=== PATIENT | male | born 1965 | race Caucasian/White ===

== ENCOUNTER → 2023-03-08 | Outpatient (CLI) | payer OTHER, SELFPAY ==
[2023-03-08 18:19] LABS: Amphetamine Urine VISTA NEGATIVE (<1000 ng/mL); Barbiturate Urine VISTA NEGATIVE (< 200 ng/mL); Benzodiazepine Urine VISTA NEGATIVE (< 200 ng/mL); Cocaine Urine VISTA NEGATIVE (< 300 ng/mL); Ecstacy Urine VISTA NEGATIVE (< 500 ng/mL); Methadone Urine VISTA NEGATIVE (< 300 ng/mL); PCP Urine VISTA NEGATIVE (< 25 ng/mL); THC Urine VISTA NEGATIVE (< 50 ng/mL); Vista UDS pH Range 6
== END | disposition home or self-care (01) ==
LOC: MTLAB 16:32
PROVIDERS: Referring Provider Internal Medicine Pulmonary Disease; Visit Provider Internal Medicine Pulmonary Disease
DX: G47.10 Hypersomnia, unspecified (principal)
CPT/HCPCS: 80307

== ENCOUNTER → 2024-10-29 | Outpatient (CLI) | payer OTHER, SELFPAY ==
--- NOTE | 2024-10-29 12:31 | MRI_ITS ---
PROCEDURE: LOWER EXT JOINT ONLY (ROUTINE) 10/29/2024 REASON FOR EXAM: QUAD TENDON RUPTURE TECHNIQUE: LOWER EXT JOINT ONLY (ROUTINE) Multiplanar and multisequence images were obtained without IV contrast administration. COMPARISON: COMPARISON : None FINDINGS: Menisci: There is partial subluxation involving the anterior horn of the medial meniscus. No meniscal tears are seen. Bone Marrow: No bone marrow edema is identified. Mild chondromalacia involving the undersurface of the patella. Chondral surfaces overlying the weight-bearing surfaces of the medial and lateral femoral condyles and tibial plateau are within normal limits. Effusion: [id number] size joint effusion Soft Tissues: Ligaments and Tendons: The anterior and posterior cruciate ligaments are intact. Grade 1 sprain involving the lateral collateral ligament complex. The medial collateral ligament complex appears intact. There is complete rupture involving the distal quadriceps tendon, with approximately 2.7 cm retraction and surrounding edematous changes. The patellar tendon is intact. MRI/Lower Ext Joint Only (Routine) IMPRESSION: 1. Complete rupture involving the distal quadriceps tendon, with a proximally 2 .7 cm retraction and surrounding edematous changes. 2. Mild grade 1 sprain involving the lateral collateral ligament complex. 3. Partial subluxation involving the anterior horn of the medial meniscus. No meniscal tears are seen. 4. Grzakagf-wy-yrwlj size joint effusion. 5. Additional findings, as above Reading [facility]
== END | disposition home or self-care (01) ==
PROVIDERS: Referring Provider Nurse Practitioner Family; Visit Provider Nurse Practitioner Family
DX: S76.112A Strain of left quadriceps muscle, fascia and tendon, initial encounter (principal); X58.XXXA Exposure to other specified factors, initial encounter
CPT/HCPCS: 73721

== ENCOUNTER 2024-10-30 07:03 | Day surgery (SDC) | payer OTHER, SELFPAY ==
[2024-10-30] VITALS (10 sets, daily range): BP systolic 116–164; BP diastolic 65–88; PULSE 57–77; RESP 16–18; TEMP 36.5–37; O2SAT 96–98; BMI 27.9
--- OUTSIDE RECORDS SUMMARY | 2024-10-30 07:07 | XMS RPT_ITS | CCD ---
Author Organization [facility] CliniSyme Care Team Providers Care Certified Nutritionist Name Role Phone ALVARO MARTINEZ MD. Unavailable Unavailable Maharaj, Christopher Unavailable Unavailable UNKNOWN, PCP Unavailable Unavailable UNKNOWN, PCP Unavailable Unavailable UNKNOWN, PCP Unavailable Unavailable Maharaj, Christopher Attending Unavailable Maharaj, Christopher Primary Care Unavailable Maharaj, Christopher Admitting Unavailable Maharaj, Christopher Attending Unavailable Maharaj, Christopher Primary Care Unavailable BondArpan plasencia Admitting Unavailable BondArpan Attending Unavailable Maharaj, Christopher Primary Care Unavailable PhiliprierLuh Admitting Unavailable FarrierLuh Attending Unavailable Maharaj, Christopher Primary Care Unavailable BondArpan hendrickson Admitting Unavailable BondArpan Attending Unavailable Maharaj, Christopher Primary Care Unavailable BondArpan hendrickson Admitting Unavailable BondArpan Attending Unavailable Maharaj, Christopher Primary Care Unavailable Whitaker, Kinjal Annia Primary Care Provider WHITAKER, KINJAL E. Primary Care Unavailable Whitaker Kinjal SPENCER Primary Care Provider Unknown, Referring Provider Unavailable Unav ailable Graham Toledo Unavailable Unavailable Maharaj, Christopher D Unavailable Unavailable Whitaker Kinjal SPENCER Primary Care Provider MAGALI MCGILL Attending Unavailable WHITAKER, KINJAL E. Primary Care Unavailable ARTEM, MAGALI SABRY Attending Unavailable WHITAKER, KINJAL E. Primary Care Unavailable ARTEM, MAGALI SABRY Attending Unavailable WHITAKER, KINJAL E. Primary Care Unavailable ARTEM, MAGALI SABRY Attending Unavailable WHITAKER, KINJAL E. Primary Care Unavailable Sibilia, Dimas V Referring Unavailable Sibilia, Dimas V Attending Unavailable Care Physician, No Primary Primary Care Unava ilable LEDY IZQUIERDO Referring Unavailable LEDY IZQUIERDO Attending Unavailable [facility] Primary Care Unavailable Swihart Mary SPENCER Primary Care Provider [phone] Swigladyst Mary SPENCER Primary Care Provider [phone] WILIT, MARY TORIBIO Primary Care Unavailable SWIHART, MARY TORIBIO Referring Unavailable SWIHART, MARY TORIBIO Admitting Unavailable RECINOS, SCOTT Attending Unavailable SWIHART, MARY TORIBIO Primary Care Unavailable SWIHART, MARY TORIBIO Referring Unavailable SWIHART, MARY TORIBIO Admitting Unavailable RECINOS, SCOTT Attending Unavailable WARNES, EMELIA Attending Unavailable SWIHART, MARY TORIBIO Referring Unavailable SWIHART, MARY TORIBIO Admitting Unavailable SWIHART, MARY TORIBIO Primary Care Unavailable SWIHART, MARY TORIBIO Referring Unavailable WARNES, EMELIA Attending Unavailable SWIHART, MARY TORIBIO Admitting Unavailable SWIHART, MARY TORIBIO Primary Care Unavailable SWIHART, MARY TORIBIO Primary Care Unavailable SWIHART, MARY TORIBIO Referring Unavailable SYSTEM, PROVIDER NOT IN Admitting Unavaila ble RECINOS, SCOTT Attending Unavailable PINKYMOHAN Attending Unavailable SWIHART, MARY TORIBIO Primary Care Unavailable SWIHART, MARY TORIBIO Referring Unavailable SWIHART, MARY TORIBIO Admitting Unavailable Care Physician, No Primary Primary Care Provider Unavailable Care Physician, No Primary Referring Provider Un available Jolly Ramires Attending Provider Medications Current Medications Medication Drug Class(es) Dates Sig (Normalized) Sig (Original) amLODIPine 5 mg oral tablet (16 sources) Dihydropyridine Calcium Channel Angelo Start: 10-29-2024 take 1 tablet by mouth once daily Amlodipine 5 mg tablet Active 5 mg PO daily October 29, 2024 12:00am Start: 12-28-2023 take 1 tablet by sandra th once daily amLODIPine (NORVASC) 5 MG tablet Indications: Essential hypertension Take 1 (one) tablet (5 mg total) by mouth daily . 90 tablet 1 12/28/2023 Active Start: 12-27-2019 take 1 tablet by sandra th once daily amLODIPine (NORVASC) 5 MG tablet Take 1 (one) tablet (5 mg total) by mouth daily . 90 tablet 12/27/2019 Active cephalexin 500 mg oral capsule (5 sources) Cephalosporin Antibacterial Start: 12-29-2020 End: 01-08-2021 take 1 capsule by mouth twice daily cephALEXin (KEFLEX) 500 MG capsule Take 1 (one) capsule (500 mg total) by mouth 2 (two) times a day for 10 days . 40 capsule 0 12/29/2020 01/08/2021 Active dextroamphetamine sulfate 15 mg extended release oral capsule (8 sources) Central Nervous System Stimulant Start: 08-22-2023 dextroamphetamine sulfate (DEXEDRINE SPANSULE) 15 MG 24 hr capsule 08/22/2023 Active loratadine 10 mg oral tablet (7 sources) Start: 12-27-2019 End: 12-26-2020 take 1 tablet by mouth once daily loratadine (CLARITIN) 10 mg tablet Take 1 (one) tablet (10 mg total) by mouth daily . 90 tablet 3 12/27/2019 Active methylphenidate hydrochloride 5 mg oral tablet (3 sources) Central Nervous System Stimulant Start: 12-22-2020 methylphenidate HCl (RITALIN) 5 MG tablet montelukast 10 mg oral tablet (7 sources) Leukotriene Receptor Antagonist Start: 10-29-2024 take 1 tablet by mouth once daily Montelukast 10 mg tablet Active 10 mg PO daily October 29, 2024 12:00am take 1 tablet by mouth once pedro y montelukast (SINGULAIR) 10 mg tablet Take 1 (one) tablet (10 mg total) by mouth nightly . Active omeprazole 40 mg delayed release oral capsule (1 source) Proton Pump Inhibitor Start: 10-29-2024 take 1 capsule by mouth once daily in the morning Omeprazole 40 mg capsule,delayed release(DR/EC) Active 40 mg PO EVERY MORNING October 29, 2024 12:00am 24 hr oxybutynin chloride 5 mg extended release oral tablet (7 sources) Cholinergic Muscarinic Antagonist Start: 01-10-2020 take 1 tablet by mouth once daily oxybutynin (DITROPAN-XL) 5 MG 24 hr tablet Indications: Urge incontinence Take 1 (one) tablet (5 mg total) by mouth daily . 90 tablet 0 01/10/2020 Active sildenafil 100 mg oral tablet (9 sources) Phosphodiesterase 5 Inhibitor Start: 10-29-2024 Sildenafil (Viagra) 100 mg tablet Active 100 mg PO daily as needed October 29, 2024 12:00am administer 30 minutes to 4 hours before activity Start: 05-03-2022 take 1 tablet by sandra th once daily as needed sildenafiL (VIAGRA) 100 MG tablet Indications: Erectile dysfunction, unspecified erectile dysfunction type Take 1 (one) tablet (100 mg total) by mouth daily as needed for erectile dysfunction . 10 tablet 05/03/2022 Active Sodium,Calcium,Mag,Pot Oxybate (1 source) Start: 10-29-2024 Sodium,Calcium,Mag,Pot Oxybate (Xywav) 0.5 gram/mL solution Active 3.75 g PO BEDTIME October 29, 2024 12:00am Xywav 0.5 gram/mL Soln (6 sources) Start: 08-09-2024 take 3.75 mL by mouth once daily Xywav 0.5 gram/mL Soln Take 3.75 mL by mouth daily . 08/09/2024 Active Completed/Discontinued Medications Medication Drug Class(es) Dates Sig (Normalized) Sig (Original) Lidocaine (2 sources) Antiarrhythmic, Amide Local Anesthetic Start: 12-22-2020 End: 12-22-2020 lidocaine 20 mg/mL (2 %) injection 6 mL lisinopril 5 mg oral tablet (1 source) Angiotensin Converting Enzyme Inhibitor Start: 10-29-2024 End: 10-29-2024 take 1 tablet by mouth once daily Lisinopril 5 mg tablet Discontinued 5 mg PO daily October 29, 2024 12:00am October 29, 2024 11:19am xywave (1 source) Start: 10-29-2024 End: 10-29-2024 xywave Discontinued PO AT BEDTIME October 29, 2024 12:00am October 29, 2024 11:19am Problems Active Problems Problem Classification Problem Date Documented Date Episodic/Chronic Esophageal disorders (8 sources) Gastroesophageal reflux disease without esophagitis; Translations: [Gastro-esophageal reflux disease without esophagitis] Onset: 06-16-2022 06-16-2022 Chronic Essential hypertension (20 sources) Essential hypertension; Translations: [Essential (primary) hypertension] Onset: 12-27-2019 12-27-2019 Chronic Genitourinary symptoms and ill-defined conditions (15 sources) Urge incontinence of urine; Translations: [Urge incontinence] Onset: 01-10-2020 01-10-2020 Chronic Mycoses (1 source) Onychomycosis; Translations: [Tinea unguium] Episodic Other connective tissue disease (1 source) Pain of toe of left foot; Translations: [Pain in left toe(s)] Episodic Other male genital disorders (8 sources) Male erectile dysfunction, unspecified; Translations: [Impotence of organic origin] Onset: 06-16-2022 06-16-2022 Chronic Other nervous system disorders (2 sources) Other chronic pain; Translations: [Other chronic pain] Onset: 01-13-2024 Chronic Other non-traumatic joint disorders (2 sources) Chronic pain of right upper limb; Translations: [Pain in right shoulder] 12-28-2023 Episodic Other non-traumatic joint disorders (2 sources) Chronic pain of left upper limb; Translations: [Pain in left shoulder] 12-28-2023 Episodic Other skin disorders (1 source) Dystrophia unguium; Translations: [Nail dystrophy] Episodic Other skin disorders (1 source) Ingrowing nail; Translations: [Ingrowing nail] Episodic Other upper respiratory disease (8 sources) Allergic disposition; Translations: [Other allergic rhinitis] Onset: 06-16-2022 06-16-2022 Chronic Residual codes; unclassified (16 sources) Obstructive sleep apnea syndrome; Translations: [Obstructive sleep apnea (adult) (pediatric)] Onset: 01-10-2020 01-10-2020 Chronic Residual codes; unclassified (1 source) Hypersomnia, unspecified; Translations: [Hypersomnia, unspecified] Onset: 03-15-2023 Chronic Residual codes; unclassified (1 source) Insomnia; Translations: [Insomnia, unspecified] 10-29-2024 Episodic Skin and subcutaneous tissue infections (3 sources) Paronychia of toe of left foot; Translations: [Cellulitis of left toe] Episodic Spondylosis; intervertebral disc disorders; other back problems (17 sources) Neck pain; Translations: [Cervicalgia] Onset: 01-13-2024 12-28-2023 Episodic Substance-related disorders (8 sources) Caffeine-related disorder; Translations: [Other stimulant abuse, uncomplicated] Onset: 05-03-2022 06-16-2022 Chronic Unclassified (2 sources) History of clinical finding in subject; Translations: [History of elevated PSA] Onset: 12-27-2019 12-27-2019 Past or Other Problems Problem Classification Problem Date Documented Date Episodic/Chronic Deficiency and other anemia (8 sources) Anemia; Translations: [Anemia, unspecified] Onset: 08-21-2022 08-21-2022 Episodic Mood disorders (12 sources) Mood disorders Onset: 05-03-2022 05-03-2022 Other diseases of kidney and ureters (8 sources) Renal impairment; Translations: [Disorder of kidney and ureter, unspecified] Onset: 08-21-2022 08-21-2022 Episodic Other inflammatory condition of skin (8 sources) Seborrheic dermatitis; Translations: [Seborrheic dermatitis, unspecified] Onset: 06-16-2022 06-16-2022 Episodic Other lower respiratory disease (8 sources) Chronic cough; Translations: [Chronic coughing] Onset: 06-16-2022 06-16-2022 Episodic Other non-traumatic joint disorders (10 sources) Pain in right shoulder; Translations: [Pain in joint, shoulder region] Onset: 01-13-2024 01-13-2024 Episodic Other non-traumatic joint disorders (2 sources) Pain in left shoulder; Translations: [Pain in left shoulder] Onset: 01-13-2024 Episodic Other nutritional; endocrine; and metabolic disorders (8 sources) Overweight in adulthood with body mass index of 25 or more but less than 30; Translations: [Body mass index (BMI) 29.0-29.9, adult] Onset: 06-16-2022 06-16-2022 Episodic Other screening for suspected conditions (not mental disorders or infectious disease) (15 sources) Raised prostate specific antigen; Translations: [Elevated prostate specific antigen [PSA]] Onset: 01-10-2020 01-10-2020 Episodic Other skin disorders (8 sources) Change in skin lesion; Translations: [Disorder of pigmentation, unspecified] Onset: 06-16-2022 06-16-2022 Episodic Other skin disorders (8 sources) Actinic keratosis; Translations: [Actinic keratosis] Onset: 06-16-2022 06-16-2022 Episodic Residual codes; unclassified (15 sources) Past history of procedure; Translations: [Other specified postprocedural states] Onset: 01-10-2020 01-10-2020 Episodic Residual codes; unclassified (5 sources) History of clinical finding in subject; Translations: [Personal history of other specified conditions] Onset: 12-27-2019 12-27-2019 Episodic Residual codes; unclassified (8 sources) Moderate drinker; Translations: [Other specified health status] Onset: 06-16-2022 06-16-2022 Episodic Viral infection (8 sources) Disease caused by 2019-nCoV; Translations: [COVID-19] Onset: 10-27-2021 06-16-2022 Episodic NEGATED: Highlighted row has been ruled out!Residual codes; unclassified (2 sources) Disease Episodic Results Test Name Value Interpretation Reference Range Facility MEASLES,MUMP,RUBELLAon 04-24 MUMPS ABS, IGG 251.0 Normal [facility] Comment on above: Result Comment: Refe rence range: Immune >10.9 Unit: AU/mL (NOTE) Negative <9.0 Equivocal 9.0 - 10.9 Positive >10.9 A positive result generally indicates past exposure to Mumps virus or previous vaccination. PERFORMED AT [facility] Performed By: #### L VZKallie, LMMR #### [place] [address] RUBELLA AB, IGG 8.88 Normal [facility] Comment on above: Result Comment: Refe rence range: Immune >0.99 Unit: index (NOTE) Non-immune <0.90 Equivocal 0.90 - 0.99 Immune >0.99 Performed By: #### L VZG, LMMR #### [place] [address] RUBEOLA AB, IGG >300.0 Normal [facility] Comment on above: Result Comment: Refe rence range: Immune >16.4 Unit: AU/mL (NOTE) Negative <13.5 Equivocal 13.5 - 16.4 Positive >16.4 Presence of antibodies to Rubeola is presumptive evidence of immunity except when acute infection is suspected. Performed By: #### L VZG, LMMR #### Testing performed at [address] [place] [address] VARICELLA AB, IGGon 04-24-19 24 V-ZOSTER, IGG >4000 Normal [facility] Comment on above: Result Comment: Refe rence range: Immune >165 Unit: index (NOTE) Negative <135 Equivocal 135 - 165 Positive >165 A positive result generally indicates exposure to the pathogen or administration of specific immunoglobulins, but it is not indication of active infection or stage of disease. PERFORMED AT [facility] Performed By: #### L VZG, ARNOLD #### Testing performed at [facility] [address] [place] [address] Laboratory - Drug toxicology Ordered By: Dimas Pelletier on 03-08-2023 Amphetamines Ql (U) Negative <1000 ng/mL [facility] Benzodiazepines Ql (U) Negative < 200 ng/mL [facility] Cannabinoids Screen Ql (U) Negative < 50 ng/mL [facility] Cocaine Ql (U) Negative < 300 ng/mL [facility] Opiates Ql (U) Negative < 300 ng/mL [facility] No Panel InformationOrdered By: Dimas Pelletier on 03-08-2023 MDMA (Ecstasy) Screen Negative < 500 ng/mL [facility] Urine Barbiturates Screen Negative < 200 ng/mL [facility] Urine Drug Screen Comment [facility] Comment on above: CONFIRMATORY TESTING FOR ALL POSITIVE URINE DRUG SCREENRESULTS WILL ONLY BE SENT OUT UPON PHYSICIAN ORDER. POWHATTAN Urine Drug Screen methods provide only preliminaryanalytical test results. A more specific alternate chemicalmethod must be used in order to obtain a confirmedanalytical result. Gas chromatography/mass spectrometery(GC/MS) is the preferred confirmatory method. Clinicalconsideration and professional judgement should be appliedto any drug of abuse test result, particularly whenpreliminary positive results are used. URINE TCA TESTING MUST BE ORDERED SEPARATELY. USE TESTMNEMONIC: [facility] Urine Methadone Screen Negative < 300 ng/mL [facility] Urine Drug Screen (VISTA)on 03-08-2023 AMPHETAMINES Negative Normal <1000 ng/mL [facility] Comment on above: Order Comment: UNK U Performed By: #### L [id number] #### [facility] [address] [place], [address] BARBITIURATES Negative Normal < 200 ng/mL [facility] Comment on above: Order Comment: UNK U Performed By: #### L [id number] #### [facility] [address] [place] [address] BENZODIAZIPINE Negative Normal < 200 ng/mL [facility] Comment on above: Order Comment: UNK U Performed By: #### L [id number] #### [facility] [address] [place] [address] COCAINE Negative Normal < 300 ng/mL [facility] Comment on above: Order Comment: UNK U Performed By: #### L [id number] #### [facility] [address] [place] [address] ECSTACY Negative Normal < 500 ng/mL [facility] Comment on above: Order Comment: UNK U Performed By: #### L [id number] #### [facility] [address] [place] [address] METHADONE Negative Normal < 300 ng/mL [facility] Comment on above: Order Comment: UNK U Performed By: #### L 505.5000 #### [facility] [address] [place] [address] OPIATES Negative Normal < 300 ng/mL [facility] Comment on above: Order Comment: UNK U Performed By: #### L [id number] #### [facility] [address] [place] [address] PCP Negative Normal < 25 ng/mL [facility] Comment on above: Order Comment: UNK U Performed By: #### L [id number] #### [facility] [address] [place] [address] THC Negative Normal < 50 ng/mL [facility] Comment on above: Order Comment: UNK U Performed By: #### L 505.5000 #### [facility] [address] [place], [address] VISTA UDS PH 6 Normal [facility] Comment on above: Order Comment: UNK U Performed By: #### L [id number] #### [facility] [address] [place], [address] Urine phencyclidine (PCP) de tectionOrdered By: Dimas Pelletier on 03-08-2023 Phencyclidine Ql (U) Negative < 25 ng/mL [facility] Nursing Communicationon 12-10 Alpa prepped for ph enol matrixectomy. [facility] COVID-19, MOLECULARon 2020 SARS-CoV-2 (COVID-19) RNA HA+probe Ql (Unsp spec) Not detected Normal Not Detected [facility] Comment on above: Result Comment: This test was performed under the FDA's Emergency Use Authorization (EUA). Testing was performed using the Shaneka SARS-CoV-2 RT-PCR assay on the Antione Shaneka 6800 System. This test has not been approved for use in asymptomatic patients and its performance in this patient population has not been evaluated. Negative results do not rule out the presence of SARS-CoV-2/COVID-19. Fact sheets for this EUA can be found at the following links: For Healthcare Providers: https://www.fda.gov/media/837122/download For Patients: https://www.fda.gov/media/324458/download Performed By: #### L [id number] #### [facility] [address] [place] [address] Luis Fernando Burgess M.D. [id number] Coding Summary.on 10-06-2018 Coding Summary. CODING DATE: 019 FINAL [facility] STATUS: Home (Routine DC) PAYOR: Commercial Insurance ADMIT DX: REASON FOR VISIT DX: Z00.00 Encounter for general adult medical examination without abnormal findings FINAL DX: PRINCIPAL: Z00.00 Encounter for general adult medical examination without abnormal findings SECONDARY: PROCEDURES DOCTOR NAME DATE NOTE: The code number assigned matches the documented diagnosis and / or procedure in the patient's chart. However, the narrative phrase printed from the coding software may appear abbreviated, or result in slightly different terminology. Coded By: Carie Moses Date Saved: 10/06/2018 01:07 pm Normal [facility] Glu Fastingon 10-05-2018 Glucose [Mass/Vol] 98 mg/dL Normal 55-99 [facility] Comment on above: Performed By: #### 2 [id number], [id number] #### [facility] [address] [place] [address] Lipid Panelon 10-05-2018 Cholesterol [Mass/Vol] 154 mg/dL Normal 120-200 [facility] Comment on above: Performed By: #### 2 [id number], [id number] #### [facility] [address] [place] [address] Cholesterol in HDL [Mass/Vol] 46 mg/dL [facility] Comment on above: Result Comment: HDL > or equal to 60 mg/dL: Low cardiovascular risk HDL < 40 mg/dL : High cardiovascular risk Performed By: #### 2 [id number], [id number] #### [facility] [address] [place] [address] Cholesterol in LDL [Mass/Vol] 104 mg/dL Normal <=129 [facility] Comment on above: Performed By: #### 2 [id number], [id number] #### [facility] [address] [place] [address] Cholesterol in VLDL [Mass/Vol] 16 mg/dL Normal 7-40 [facility] Comment on above: Performed By: #### 2 [id number], [id number] #### [facility] [address] [place] [address] Triglyceride [Mass/Vol] 81 mg/dL Normal <=149 [facility] Comment on above: Performed By: #### 2 [id number], [id number], [id number] #### [facility] [address] [place] [address] PSA Totalon 10-05-2018 Prostate specific Ag [Mass/Vol] 3.1 ng/mL Normal 0.1-3.5 [facility] Comment on above: Performed By: #### 2 [id number], [id number] #### [facility] [address] [place] [address] Hep Bs Abon 06-22-2018 HBV surface Ab Ql (S) Reactive Fis [facility] Comment on above: Result Comment: Non Reactive: Inconsistent with immunity, less than 10 mIU/mL Reactive: Consistent with immunity, greater than 9.9 mIU/mL Performed at: [address] [id number] PhD Ross Ding Performed By: #### 2 [id number] #### [facility] [address] [place] [address] Hep Bs Abon 05-09-2018 HBV surface Ab Ql (S) Non Reactive F [facility] Comment on above: Result Comment: Non Reactive: Inconsistent with immunity, less than 10 mIU/mL Reactive: Consistent with immunity, greater than 9.9 mIU/mL Verified by repeat analysis Performed at: [address] [id number] PhD Ross Ding Performed By: #### 2 [id number], [id number] #### [facility] [address] [place] [address] Varic IgGon 05-09-2018 VZV IgG IA Qn (S) 717 Immune >165 [facility] Comment on above: Result Comment: Nega tive <135 Equivocal 135 - 165 Positive >165 A positive result generally indicates exposure to the pathogen or administration of specific immunoglobulins, but it is not indication of active infection or stage of disease. Performed at: [address] [id number] PhD Ross Ding Performed By: #### 2 [id number], [id number] #### [facility] [address] [place] [address] XR Shoulder Complete Righton 02-23-2018 XR Shoulder Complete Right Exam Date/Time: 02/23/2018 11:21 EST Reason for Exam: Pain, Non Traumatic Report STUDY: XR Shoulder Complete Right; 02/23/2018 11:21 am INDICATION: Pain, Non Traumatic. COMPARISON: None. ACCESSION NUMBER(S): [id number] ORDERING CLINICIAN: Luh Doe TECHNIQUE: 3 views of the right shoulder including AP , axillary and scapular Y-views were obtained. FINDINGS: There is no radiographic evidence of acute fracture or dislocation identified. The joint spaces are well preserved without significant degenerative changes. IMPRESSION: 1. No evidence of acute fracture or dislocation. FINAL REPORT Dictated: 02/23/2018 2:37 pm Agustina Suero MD Signed (Electronic Signature): 02/23/2018 2:37 pm Signed by: Agustina Suero MD Technologist: [facility] CT Coronary Artery Calcium S [facility] 11-04-2017 Calcium mass conc Exam Date/Time: 11/04/2017 08:08 EDT Reason for Exam: ISCHEMIC HEART DISEASE FATIGUE APNEA;Screening Report STUDY: CT Coronary Artery Calcium Score; 11/04/2017 8:08 am INDICATION: Screening. COMPARISON: None. ACCESSION NUMBER(S): [id number] ORDERING CLINICIAN: Lenny Maharaj TECHNIQUE: Using prospective ECG gating, CT scan of the coronary arteries was performed without intravenous contrast. Coronary calcium scoring was performed according to the method of Agatston. FINDINGS: The score and distribution of calcium in the coronary arteries is as follows: LM 0, LAD 0, LCx 0, RCA 0, Total 0 The visualized mid/lower ascending thoracic aorta measures 2.9 cm in diameter. The visualized descending thoracic aorta is within normal limits for course and caliber. The heart is within normal limits for size. No pericardial effusion is present. Densely calcified lymph nodes are seen in the right hilum and mediastinum, consistent with remote granulomatous disease. No gross noncalcified mediastinal lymphadenopathy is identified. There is no focal infiltrate, pleural effusion or pneumothorax identified. A 5 mm calcified nodule is seen in the right upper lobe, consistent with remote granulomatous disease. No discrete noncalcified pulmonary nodules or masses are seen within the visualized lungs. IMPRESSION: 1. Coronary artery calcium score of 0, which places the patient in the low risk category, as below. Coronary artery calcium scoring may be helpful in predicting the risk for future coronary heart disease events. According to the [employer] Clinical Expert Consensus Task Force, such testing provides important prognostic information in patients with Exam Date/Time: 11/04/2017 08:08 EDT Report more than one coronary heart disease risk factor. The coronary artery calcium score correlates with the annual risk of a non-fatal myocardial infarction or coronary heart disease . Coronary artery score Annual Risk 0-99 0.4% 100-399 1.3% >400 2.4% These three "breakpoints" correspond to lower, intermediate and high risk states for future coronary events. Such information should be used, along with appropriate clinical judgment, to make decisions regarding the intensity of risk factor management strategies to treat blood lipids and to modify other non-lipid coronary risk factors. Reference: Gifford P et al. Circulation. 2007; 115:402-426 FINAL REPORT Dictated: 11/04/2017 11:01 am Agustina Suero MD Signed (Electronic Signature): 11/04/2017 11:01 am Signed by: Agustina Suero MD Technologist: [facility] Vital Signs Date Time Vital Sign Value Performing Clinician Facility 10-29-2024 10:52-0400 Body height 177.8 cm No Primary Care Physician [facility] 10-29-2024 10:52-0400 Body mass index (BMI) [Ratio] 27.9 kg/m2 No Primary Care Physician [facility] 10-29-2024 10:52-0400 Body weight 88.45 kg No Primary Care Physician [facility] 01-05-2021 07:18-0400 Body temperature 98.1 [degF] Magali Artem DPM Work Phone: [facility] 01-05-2021 07:18-0400 Diastolic blood pressure 91 mm[Hg] Magali Chesterfield DPM Work Phone: [facility] 01-05-2021 07:18-0400 Heart rate 60 /min Magali Artem DPM Work Phone: [facility] 01-05-2021 07:18-0400 Systolic blood pressure 160 mm[Hg] Magali Artem DPM Work Phone: [facility] 12-29-2020 07:50-0400 Body temperature 55 [degF] Magali Chesterfield DPM Work Phone: [facility] 12-29-2020 07:50-0400 Diastolic blood pressure 83 mm[Hg] Magali Chesterfield DPM Work Phone: [facility] 12-29-2020 07:50-0400 Systolic blood pressure 160 mm[Hg] Magali Chesterfield DPM Work Phone: [facility] 12-22-2020 07:36-0400 Body temperature 97 [degF] Magali Artem DPM Work Phone: [facility] 12-22-2020 07:36-0400 Diastolic blood pressure 65 mm[Hg] Magali Artem DPM Work Phone: [facility] 12-22-2020 07:36-0400 Heart rate 74 /min Magali Artem DPM Work Phone: [facility] 12-22-2020 07:36-0400 Systolic blood pressure 117 mm[Hg] Magali Artem DPM Work Phone: [facility] Encounters Encounter Date Encounter Type Care Provider Facility Start: 10-29-2024 End: 10-29-2024 ambulatory No Primary Care Physician -[facility] Start: 10-29-2024 End: 10-29-2024 Patient encounter procedure Jolly Menjivar [employer]INE[employer]-C -[facility] Work Phone: Start: 09-26-2024 End: 09-30-2024 ambulatory Mary Walters [employer] FE[employer]ER Work Phone: [facility] Comment on above: Neck pain (Primary D x) Start: 09-19-2024 End: 09-23-2024 ambulatory Mary Walters [employer]ER Work Phone: [facility] Comment on above: Neck pain (Primary D x) Start: 09-14-2024 End: 2024 ambulatory Mary Rasheednarcisa SPENCER Work Phone: [facility] Comment on above: Neck pain (Primary D x) Start: 09-12-2024 End: 09-16-2024 ambulatory Mary Rasheednarcisa SPENCER Work Phone: [facility] Comment on above: Neck pain (Primary D x) Start: 09-05-2024 End: 09-09-2024 ambulatory Mary Finnderick [employer]ER Work Phone: [facility] Comment on above: Neck pain; Essential hypertension Start: 01-13-2024 End: 01-17-2024 ambulatory Provider Not In [facility] Comment on above: Bilateral shoulder p ain, unspecified chronicity (Primary Dx); Chronic right shoulder pain; Chronic left shoulder pain; Neck pain; Essential hypertension Start: 12-28-2023 End: 12-28-2023 Transcribe Orders Mary Finnderick SPENCER Work Phone: [facility] Comment on above: Chronic right should er pain (Primary Dx); Chronic left shoulder pain; Neck pain; Essential hypertension Start: 04-22-2023 ambulatory [facility] Start: 03-08-2023 End: 03-08-2023 Patient encounter procedure [facility] Work Phone: Start: 03-08-2023 End: 03-08-2023 ambulatory Dimas Pelletier [facility] Work Phone: Start: 01-05-2021 End: 01-05-2021 ambulatory MAGALI MCGILL [facility] Amb[facility] Start: 01-05-2021 End: 01-05-2021 Office outpatient visit 10 minutes Magali Mcgill DPM Work Phone: [facility] Comment on above: Paronychia, toe, lef t (Primary Dx) Start: 12-29-2020 End: 12-29-2020 ambulatory MAGALI MCGILL [facility] Start: 12-29-2020 End: 12-29-2020 Postop follow up visit related to original px Magali Mcgill DPM Work Phone: [facility] Comment on above: Paronychia, toe, lef t (Primary Dx) Start: 12-22-2020 End: 12-22-2020 ambulatory MAGALI MCGILL [facility] Amb[facility] Start: 12-22-2020 End: 12-22-2020 Office outpatient visit 10 minutes Magali Mcgill DPM Work Phone: [facility] Comment on above: Onychomycosis (Prima ry Dx); Nail dystrophy; Onychocryptosis; Toe pain, left Start: 12-19-2020 ambulatory MAGALI MCGILL [facility] Start: 07-31-2020 End: 07-31-2020 Subsequent hospital visit by physician Artur Vargas MD Work Phone: [facility] Comment on above: Arrived Start: 07-27-2020 End: 07-27-2020 ambulatory [facility] Start: 07-07-2020 End: 07-07-2020 Transcribe Orders Oh Turner [facility] Start: 06-24-2020 End: 06-24-2020 Orders Only Anni Fragoso Work Phone: [facility] Start: 04-06-2018 End: 04-07-2018 Patient encounter procedure Arpan Bond Facility:[facility] Start: 02-27-2018 End: 05-15-2018 Patient encounter procedure Arpan Bond Facility:[facility] Start: 02-27-2018 Patient encounter procedure PCP UNKNOWN Facility:[id number] Start: 02-23-2018 End: 02-24-2018 Patient encounter procedure Luh Doe Facility:[facility] Start: 02-23-2018 Patient encounter procedure PCP UNKNOWN Facility:[id number] Start: 11-04-2017 End: 11-05-2017 Patient encounter procedure Lenny Maharaj Facility:[facility] Start: 11-04-2017 Patient encounter procedure ALVARO MARTINEZ Facility:[id number] Start: 10-25-2017 End: 10-26-2017 Patient encounter procedure Lenny Maharaj Facility:[facility] Procedures Date Procedure Procedure Detail Performing Clinician Start: 12-22-2020 NURSING COMMUNICATION Min Mcgill DPM Work Phone: Start: 12-27-2019 Adult depression scr eening assessment Anni Fragoso Plan of Treatment Date Care Activity Detail Author Start: 09-19-2039 Respiratory Syncytial Virus Immunization: Risk, 60-74 Risk, or 75+ (1 - 1-dose 75+ series) Respiratory Syncytial Virus Immunization: Risk, 60-74 Risk, or 75+ (1 - 1-dose 75+ series) [facility] Start: 09-28-2032 Tetanus vaccination Tetanus: Every 10yrs [facility] Start: 05-30-2025 Screening for malignant neoplasm of colon [facility] Start: 09-28-2024 Prostate specific antigen measurement PSA Level [facility] Start: 09-26-2024 End: 09-26-2024 ambulatory 09/26/2024 9:15 AM EDT Treatment [facility] [address] [place] [address] Mary Walters, CHIPPER FEEDER [address] [id number] Emelia Fay PTA [facility] Start: 09-22-2024 Depression screening using PHQ-9 (Patient Health Questionnaire 9) score Depression Screening/Follow-Up (PHQ-2/9) [facility] Start: 09-22-2024 History and physical examination, annual for health maintenance Wellness Visit [facility] Start: 09-19-2024 End: 09-19-2024 ambulatory 09/19/2024 9:15 AM EDT Treatment [facility] [address] [place] [address] Mary Walters, CHIPPER FEEDER [address] [place] [address] Emelia Fay, LOOM TECHNICIAN Discharge Disposition: Home [facility] Start: 09-14-2024 End: 09-14-2024 ambulatory [facility] Start: 09-12-2024 End: 09-12-2024 ambulatory 09/12/2024 10:45 AM EDT Treatment [facility] [address] [place] [address] Mary Walters, CHIPPER FEEDER [address] [place] [address] Scott Recinos, PT Discharge Disposition: Home [facility] Start: 01-13-2024 End: 01-13-2024 ambulatory 01/13/2024 11:30 AM EDT Evaluation [facility] [address] [place] [address] System, Provider Not In Scott Recinos, PT Discharge Disposition: Home [facility] Start: 12-26-2021 Prostate specific antigen measurement PSA Level [facility] Start: 01-05-2021 End: 01-05-2021 Patient encounter procedure 01/05/2021 Office Visit Podiatry Magali Mcgill, DIPIKA [address] [place] [address] [facility] Start: 12-26-2020 Adolescent depression screening assessment Depression Screening (PHQ9) [facility] Start: 12-26-2020 Depression screening using PHQ-9 (Patient Health Questionnaire 9) score Depression Screening (PHQ9) [facility] Start: 12-10-2020 Influenza vaccination Sequential Influenza Vaccine (#1) [facility] Start: 07-31-2020 End: 07-31-2020 Appointment 07/31/2020 Appointment Sleep Medicine Artur Vargas MD [address] [place] [address] [phone] [facility] Start: 07-17-2020 COVID-19 Vaccine (2 - Pfizer 2-dose series) COVID-19 Vaccine (2 - Pfizer 2-dose series) [facility] Start: 12-11-2019 Influenza vaccination given Sequential Influenza Vaccine (#1) [facility] Start: 05-27-2016 Administration of herpes zoster vaccine Zoster Vaccines (2 of 3) [facility] Start: 2014 Pneumococcal Vaccine: Age 50+ (1 of 1 - PCV) Pneumococcal Vaccine: Age 50+ (1 of 1 - PCV) [facility] Start: 2014 Screening for malignant neoplasm of colon [facility] Start: 1982 Hepatitis C antibody, confirmatory test Hepatitis C Screening [facility] Start: 1982 Hepatitis C screening Hepatitis C Screening [facility] Start: 1980 COVID-19 Vaccine (1 of 2) COVID-19 Vaccine (1 of 2) [facility] Start: 1980 COVID-19 Vaccine (1) COVID-19 Vaccine (1) [facility] Start: 09-19-1979 HIV screening HIV Screening [facility] Start: 09-19-1967 History and physical examination, annual for health maintenance Wellness Visit [facility] Start: 1964 Screening for malignant neoplasm of colon [facility] Start: 1964 Tetanus vaccination Tetanus: Every 10yrs [facility] MR Lower Extremity Joint [facility] Immunizations Immunization Date Immunization Notes Care Provider Fa gertrudis 09-28-2022 tetanus and diphther ia toxoids, adsorbed, preservative free, for adult use (2 Lf of tetanus toxoid and 2 Lf of diphtheria toxoid) Mary Walters [facility] Work Phone: [facility] 10-24-2021 zoster vaccine recombinant J evelin Walters [employer] Work Phone: [facility] 03-08-2021 zoster vaccine recombinant J evelin Walters [facility] Work Phone: [facility] 01-12-2021 Influenza, injectabl e, [place] Canine Kidney, preservative free, quadrivalent Mary Walters [employer]ER Work Phone: [facility] 03-29-2020 influenza, injectabl e, quadrivalent, preservative free Magali Chesterfield DPM Work Phone: [facility] 02-26-2019 influenza, injectabl e, quadrivalent, preservative free Magali Artem DPM Work Phone: [facility] 04-01-2016 zoster vaccine, live Magali Ke eler DPM Work Phone: [facility] 04-01-2009 novel influenza-H1N1 -09, preservative-free, injectable Magali Mcgill DPM Work Phone: [facility] Payers Date Payer Category Payer Self-pay 2023 Unknown [id number] 2019 Managed Care PPO (unspecified) [employer] PPO Member Subscriber Plan / Payer (Effective 2019-Present) Name: Agustina Dunlap Relation to Subscriber: Spouse Name: TIFFANIE DUNLAP Date of : 1963 Address: [address] [place] [address] Payer ID: Not on file Type: Not on file Address: [address] [place] [id number] 2019 Unknown [id number]. [id number] 2019 Unknown MMO [employer] S UPERMED PPO [id number] 2019-Present [phone] [address] [place] [address] [id number] 2019 Unknown [id number] 1965 Unknown [id number] 2.16.840.1.765534.3.579.2. 356 1965 Unknown [id number] 2.16.840.1.705483.3.579.2. 356 1965 Unknown [id number] 2.16.840.1.514624.3.579.2. 356 1965 Unknown [id number] 2.16.840.1.077633.3.579.2. 356 1965 Unknown [id number] 2.16.840.1.640785.3.579.2. 900 1965 Unknown [id number] 2.16.840.1.049620.3.579.2. 903 1965 Unknown [id number] 2.16.840.1.958548.3.579.2. 903 1965 Unknown [id number] 2.16.840.1.708960.3.579.2. 903 1965 Unknown [id number] 2.16.840.1.842876.3.579.2. 903 1965 Unknown [id number] 2.16.840.1.937229.3.579.2. 903 1965 Unknown [id number] 2.16.840.1.115305.3.579.2. 903 1964 Unknown [id number] 2.16.840.1.062943.3.579.2. 903 1965 Unknown [id number] 2.16.840.1.769390.3.579.2. 903 1965 Unknown [id number] 2.16.840.1.946065.3.579.2. 903 1965 Unknown [id number] 2.16.840.1.966777.3.579.2. 903 Unknown [id number] Unknown [id number] 2.16.840.1.206955.3.579.2. 462 Unknown [id number] Social History Date Type Detail Facility Start: 01-10-2020 End: 10-29-2024 Tobacco smoking status NHIS Never smoker [facility] Start: 12-27-2019 End: 01-10-2020 Tobacco use and exposure Never used [facility] Start: 01-10-2020 End: 09-19-2024 Alcohol intake Current drinker of alcohol (finding) [facility] Start: 12-27-2019 End: 01-10-2020 History SDOH Alcohol Frequency 5 [facility] Start: 12-27-2019 End: 01-10-2020 History SDOH Alcohol Std Drinks 1 [facility] Start: 1965 Sex Assigned At Not on file [facility] Exposure to SARS-CoV -2 (event) Not sure [facility] Start: 1965 Sex Assigned At Male [facility] Start: 05-03-2022 End: 09-27-2022 History of Social function [facility] Start: 05-03-2022 End: 09-27-2022 Humiliation, Afraid, Rape, and Kick questionnaire [HARK] [facility] Within the last year , have you been afraid of your partner or ex-partner? No [facility] Do you belong to any clubs or organizations such as jewish groups, unions, fraternal or athletic groups, or school groups? Yes [facility] Are you now , , , , never or living with a partner? [facility] How often to you hav e a drink containing alcohol? 4 or more times a week [facility] How many standard dr inks containing alcohol do you have on a typical day? 3 or 4 [facility] How often do you hav e 6 or more drinks on 1 occasion? Never [facility] How hard is it for y ou to pay for the very basics like food, housing, medical care, and heating Not hard at all [facility] Do you feel stress - tense, restless, nervous, or anxious, or unable to sleep at night because your mind is troubled all the time - these days [OSQ] Not at all [facility] (I/We) worried bridget er (my/our) food would run out before (I/we) got money to buy more. Never true [facility] Start: 06-16-2022 Alcohol Comment 1 - 2 beer daily, previously heavier, denies alcoholism 05/03/22. [facility] Start: 12-27-2019 Gender identity Identifies as male gender (finding) [facility] Start: 12-27-2019 Sexual orientation Heterosexual (finding) [facility] Goals Date Patient Goal Desired Activity /State Personal health goal Comment on above: Formatting of this n ote might be different from the original. High blood pressure makes your heart work too hard. It can cause heart attack, stroke and kidney disease. Functional Status Date Assessment Result Facility NEGATED: Highlighted row Functional performance Functional status health issues are not documented Disease [facility] [address] DO Work Phone: Mental Status Date Assessment Result Facility NEGATED: Highlighted row Cognitive function [Interpretation] Cognitive status health issues are not documented Disease [facility] [address] DO Work Phone: Clinical Notes 12-22-2020 to 09-26-2024 Emelia Fay, LOOM TECHNICIAN - 09/26/2024 9:15 AM EDTEmelia Fay, LOOM TECHNICIAN - 09/19/2024 9:15 AM EDTPScott baum, PT - 09/14/2024 10:45 AM EDTPatelScott, PT - 09/12/2024 10:45 AM EDTPatient Instructions Note Date & Type Note Facility 09-26-2024 History of Presen t illness Narrative [facility]ATION DAILY TREATMENT NOTE Today's Date 09/26/2024 Patient Name: Agustina Dunlap Date of : 1965 Current Visit #: 5 Authorized Visits: 40 Case Name: Neck Pain History: Pre-Treatment Pain Scale: 0 Symptoms: stiffness Functional Diagnosis: 1. Neck pain Clinical Information: Subjective: He likes doing the stretches and has less pain. He will be leaving for vacation and wants to be put on HOLD while doing his HEP Objective He is able to reach up overhead to put items on shelves He is able to complete ADL's. Without difficulty He is aware of posture and how to correct it No pain with reaching up his back. He can reach scap area with R arm T6 with Left MMT shoulder 4+/5 BLE Min improvement with cervical rotation AROM shoulder flexion/abd R 140, L 145 AROM ER 50 BLE with 4+/5 MMT He is compliant with HEP Treatments: Physical Therapy Exercise Log - 09/26/24 0944 OTHER Precautions/Contraindications Supervising PT: Pola Notes visit 4: 9:15-9:44 Therapeutic Exercise (96824) Intervention Pulleys 2 min flexion and scaption each Parameters scifit arm bike 4 mins L4 (change direction every 2 mins) Intervention pendulums PRN Parameters thoracic extension against half roll with breathing 10 Intervention doorway pec stretch and ER stretch 20" x3 HEP Parameters standing cane ext behind the back 3" x10 Intervention IR towel stretch 10" x5 Parameters serratus wall slides YTband 15 Intervention cervical SNAGs rotation and extension manual and with towel 3" x10 Parameters BLE towel slide on wall x10 Intervention row , sh ext L5 15 Parameters HABD and ER GTB 15 with half form roll against wall Intervention wall push up 10 NT Parameters head press into pillow in supine x10 Intervention head press with RTB ER/HABD x10 Parameters Access Code: [email or web address] URL: [email or web address] Date: 09/05/2024 Prepared by: Mohan Escobedo Exercises - Seated Shoulder Scaption AAROM with [place] at Side - 2 x daily - 10 reps - Seated Shoulder Abduction AAROM with [place] Behind - 2 x daily - 10 reps - Circular Shoulder Pendulum with Table Support - 2 x daily - 20 reps - Shoulder Flexion Wall Slide with Towel - 2 x daily - 10 reps - 5sec hold - Standing Shoulder Internal Rotation Stretch with Towel - 2 x daily - 5 reps - 10sec hold - Corner Pec Major Stretch - 2 x daily - 3-5 reps - 20 hold - Standing Shoulder External Rotation Stretch in Doorway - 2 x daily - 10 reps - 20 seconds hold - Standing Shoulder Posterior Capsule Stretch - 2 x daily - 10 reps - 20 seconds hold - Standing Shoulder Extension with Dowel - 2 x daily - 10 reps - 3 seconds hold - Seated Assisted Cervical Rotation with Towel - 2 x daily - 5 reps - 10 seconds hold - Cervical Extension AROM with Strap - 2 x daily - 5 reps - 10 seconds hold - Supine Cervical Retraction with Towel - 2 x daily - 5 reps - 10 seconds hold PT Treatment Times Therex Total Time 29 Direct Treatment Time 29 Total Treatment Time 29 Goals: Physical Therapy Ortho Goals: CARRYING/MOVING/HANDLING: Patient will be able to place items on a shelf overhead in 3 weeks SELF CARE: Patient will be able to complete ADL's including bathing, dressing, and hair care without difficulty in 3 weeks. IMPAIRMENT: Patient will demonstrate improved postural awareness in PT sessions to facilitate mechanical alignment and function in 3 weeks. IMPAIRMENT: Pt will report no pain when reaching away from and behind the body in 6 weeks IMPAIRMENT: Improve gross MMT of the Shoulder to at least 4+/5 in 6 weeks IMPAIRMENT: Improve AROM of the cervical spine to no movement loss in 6 weeks. IMPAIRMENT: Improve AROM of Shoulder Flexion and Abduction to at least 160 degrees in 6 weeks. IMPAIRMENT: Improve AROM of Shoulder ER to at least 60 degrees in 6 weeks. OTHER: Patient will be able to properly demonstrate independence with HEP in 2 weeks. Patient Education: Quality of movement with patient demonstrated understanding. Post-Treatment Pain Scale: 0 Assessment: Patient had an expected response to treatment. Skilled Intervention demonstrated by modifications of treatment per exercise log including increased load and safety interventions per exercise log. Progress towards goals as expected. Plan for Next Visit: Hold Emelia Fay PTA STATE LICENSE, [id number] documented in this encounter [facility] 09-19-2024 History of Presen t illness Narrative [facility] DAILY TREATMENT NOTE Today's Date 09/19/2024 Patient Name: Agustina Dunlap Date of : 1965 Current Visit #: 4 Authorized Visits: 40 Case Name: Neck Pain History: Pre-Treatment Pain Scale: 1 Symptoms: stabilized Functional Diagnosis: 1. Neck pain Clinical Information: Subjective: He mainly has stiffness in his neck area. Objective added towel slides with good tolerance. Improved posture following PT. Demonstrated cervical isometrics for HEP Treatments: Physical Therapy Exercise Log - 09/19/24 0950 OTHER Precautions/Contraindications Supervising PT: Pola Notes visit 3: 9:15-9:50 Therapeutic Exercise ([id number]) Intervention Pulleys 2 min flexion and scaption each Parameters scifit arm bike 4 mins L4 (change direction every 2 mins) Intervention pendulums PRN Parameters thoracic extension against half roll with breathing 10 Intervention doorway pec stretch and ER stretch 20" x3 Parameters standing cane ext behind the back 3" x10 Intervention IR towel stretch 10" x5 Parameters serratus wall slides YTband 15 Intervention cervical SNAGs rotation and extension manual and with towel 3" x10 Parameters BLE towel slide on wall x10 Intervention row , sh ext L5 15 Parameters HABD and ER GTB 15 with half form roll against wall Intervention wall push up 10 Parameters head press into pillow in supine x10 Intervention head press with RTB ER/HABD x10 Parameters Access Code: [email or web address] URL: [email or web address] Date: 09/05/2024 Prepared by: Mohan Escobedo Exercises - Seated Shoulder Scaption AAROM with [place] at Side - 2 x daily - 10 reps - Seated Shoulder Abduction AAROM with [place] Behind - 2 x daily - 10 reps - Circular Shoulder Pendulum with Table Support - 2 x daily - 20 reps - Shoulder Flexion Wall Slide with Towel - 2 x daily - 10 reps - 5sec hold - Standing Shoulder Internal Rotation Stretch with Towel - 2 x daily - 5 reps - 10sec hold - Corner Pec Major Stretch - 2 x daily - 3-5 reps - 20 hold - Standing Shoulder External Rotation Stretch in Doorway - 2 x daily - 10 reps - 20 seconds hold - Standing Shoulder Posterior Capsule Stretch - 2 x daily - 10 reps - 20 seconds hold - Standing Shoulder Extension with Dowel - 2 x daily - 10 reps - 3 seconds hold - Seated Assisted Cervical Rotation with Towel - 2 x daily - 5 reps - 10 seconds hold - Cervical Extension AROM with Strap - 2 x daily - 5 reps - 10 seconds hold - Supine Cervical Retraction with Towel - 2 x daily - 5 reps - 10 seconds hold PT Treatment Times Therex Total Time 35 Direct Treatment Time 35 Total Treatment Time 35 Goals: Physical Therapy Ortho Goals: CARRYING/MOVING/HANDLING: Patient will be able to place items on a shelf overhead in 3 weeks SELF CARE: Patient will be able to complete ADL's including bathing, dressing, and hair care without difficulty in 3 weeks. IMPAIRMENT: Patient will demonstrate improved postural awareness in PT sessions to facilitate mechanical alignment and function in 3 weeks. IMPAIRMENT: Pt will report no pain when reaching away from and behind the body in 6 weeks IMPAIRMENT: Improve gross MMT of the Shoulder to at least 4+/5 in 6 weeks IMPAIRMENT: Improve AROM of the cervical spine to no movement loss in 6 weeks. IMPAIRMENT: Improve AROM of Shoulder Flexion and Abduction to at least 160 degrees in 6 weeks. IMPAIRMENT: Improve AROM of Shoulder ER to at least 60 degrees in 6 weeks. OTHER: Patient will be able to properly demonstrate independence with HEP in 2 weeks. Patient Education: Quality of movement with patient demonstrated understanding. Post-Treatment Pain Scale: 1 Assessment: Patient had an expected response to treatment. Skilled Intervention demonstrated by modifications of treatment per exercise log including increased load and safety interventions per exercise log. Progress towards goals as expected. Plan for Next Visit: Treatment Visit with focus on stretches Emelia Fay PTA STATE LICENSE, [id number] documented in this encounter [facility] 09-14-2024 History of Presen t illness Narrative [facility] OUTPATIENT REHABILITATION DAILY TREATMENT NOTE Today's Date 09/14/2024 Patient Name: Agustina Dunlap Date of : 1965 Current Visit #: 3 Authorized Visits: 40 Case Name: Neck Pain History: Pre-Treatment Pain Scale: 0 Symptoms: stabilized Functional Diagnosis: 1. Neck pain Clinical Information: Subjective: no pain or stiffness on arrival. Objective Added ex to progress with postural strengthening to improve thoracic kyphosis and cervical forward head posture. Treatments: Physical Therapy Exercise Log - 09/14/24 1046 OTHER Precautions/Contraindications Supervising PT: Pola Doyle visit 2: 10:46 pm 11:20 am Therapeutic Exercise (01888) Intervention Pulleys 2 min flexion and scaption each Parameters scifit arm bike 4 mins L4 (change direction every 2 mins) Intervention pendulums PRN Parameters thoracic extension against half roll with breathing 10 Intervention doorway pec stretch and ER stretch 20" x3 Parameters standing cane ext behind the back 3" x10 Intervention IR towel stretch 10" x5 Parameters serratus wall slides YTband 15 Intervention cervical SNAGs rotation and extension manual and with towel 3" x10 Parameters seated chin tucks 3" x10 , OP manual 10 Intervention row , sh ext L5 15 Parameters HABD and ER GTB 15 with half form roll against wall Intervention wall push up 10 Parameters Access Code: [email or web address] URL: [email or web address] Date: 09/05/2024 Prepared by: Mohan Escobedo Exercises - Seated Shoulder Scaption AAROM with [place] at Side - 2 x daily - 10 reps - Seated Shoulder Abduction AAROM with [place] Behind - 2 x daily - 10 reps - Circular Shoulder Pendulum with Table Support - 2 x daily - 20 reps - Shoulder Flexion Wall Slide with Towel - 2 x daily - 10 reps - 5sec hold - Standing Shoulder Internal Rotation Stretch with Towel - 2 x daily - 5 reps - 10sec hold - Corner Pec Major Stretch - 2 x daily - 3-5 reps - 20 hold - Standing Shoulder External Rotation Stretch in Doorway - 2 x daily - 10 reps - 20 seconds hold - Standing Shoulder Posterior Capsule Stretch - 2 x daily - 10 reps - 20 seconds hold - Standing Shoulder Extension with Dowel - 2 x daily - 10 reps - 3 seconds hold - Seated Assisted Cervical Rotation with Towel - 2 x daily - 5 reps - 10 seconds hold - Cervical Extension AROM with Strap - 2 x daily - 5 reps - 10 seconds hold - Supine Cervical Retraction with Towel - 2 x daily - 5 reps - 10 seconds hold PT Treatment Times Therex Total Time 39 Direct Treatment Time 39 Goals: Physical Therapy Ortho Goals: CARRYING/MOVING/HANDLING: Patient will be able to place items on a shelf overhead in 3 weeks SELF CARE: Patient will be able to complete ADL's including bathing, dressing, and hair care without difficulty in 3 weeks. IMPAIRMENT: Patient will demonstrate improved postural awareness in PT sessions to facilitate mechanical alignment and function in 3 weeks. IMPAIRMENT: Pt will report no pain when reaching away from and behind the body in 6 weeks IMPAIRMENT: Improve gross MMT of the Shoulder to at least 4+/5 in 6 weeks IMPAIRMENT: Improve AROM of the cervical spine to no movement loss in 6 weeks. IMPAIRMENT: Improve AROM of Shoulder Flexion and Abduction to at least 160 degrees in 6 weeks. IMPAIRMENT: Improve AROM of Shoulder ER to at least 60 degrees in 6 weeks. OTHER: Patient will be able to properly demonstrate independence with HEP in 2 weeks. Patient Education: Quality of movement, Verbal HEP, and Diagnosis and recovery specific education with patient verbalized understanding. Post-Treatment Pain Scale: 0 Assessment: Patient had an expected response to treatment. Skilled Intervention demonstrated by modifications of treatment per exercise log including increased load, increased rate, increased mobility, and assessment of patient's response and safety interventions per exercise log. Progress towards goals as expected. Plan for Next Visit: Treatment Visit with focus on continue with postural strengthening Scott Recinos PT STATE LICENSE, [id number] documented in this encounter [facility] 09-12-2024 History of Presen t illness Narrative [facility] OUTPATIENT REHABILITATION DAILY TREATMENT NOTE Today's Date 09/12/2024 Patient Name: Agustina Dunlap Date of : 1965 Current Visit #: 2 Authorized Visits: 40 Case Name: Neck Pain History: Pre-Treatment Pain Scale: stiffness Symptoms: first day after IE Functional Diagnosis: 1. Neck pain Clinical Information: Subjective: reports stiffness in neck and shoulders but no pain. Objective Added upper back and shoulder scapular muscle strengthening with band to improve rounded shoulder posture. Treatments: Physical Therapy Exercise Log - 09/12/24 1043 OTHER Precautions/Contraindications Supervising PT: Pola Notes visit 1: 10:45 pm 11:16 am Therapeutic Exercise (64368) Parameters Pulleys 2 min flexion and scaption each Intervention pendulums Parameters flexion wall slides 5" x10 Intervention IR towel stretch 10" x5 Parameters doorway pec stretch and ER stretch 20" x3 Intervention posterior capsule stretch 10" x5 Parameters standing cane ext behind the back 3" x10 Intervention cervical SNAGs and ext over towel 3" x10 Parameters supine chin tucks w/ head prop 3" x10 Intervention row , sh ext L5 10 Parameters HABD and ER GTB 10 Intervention wall push up 10 Parameters Access Code: [email or web address] URL: [email or web address] Date: 09/05/2024 Prepared by: Mohan Escobedo Exercises - Seated Shoulder Scaption AAROM with [place] at Side - 2 x daily - 10 reps - Seated Shoulder Abduction AAROM with [place] Behind - 2 x daily - 10 reps - Circular Shoulder Pendulum with Table Support - 2 x daily - 20 reps - Shoulder Flexion Wall Slide with Towel - 2 x daily - 10 reps - 5sec hold - Standing Shoulder Internal Rotation Stretch with Towel - 2 x daily - 5 reps - 10sec hold - Corner Pec Major Stretch - 2 x daily - 3-5 reps - 20 hold - Standing Shoulder External Rotation Stretch in Doorway - 2 x daily - 10 reps - 20 seconds hold - Standing Shoulder Posterior Capsule Stretch - 2 x daily - 10 reps - 20 seconds hold - Standing Shoulder Extension with Dowel - 2 x daily - 10 reps - 3 seconds hold - Seated Assisted Cervical Rotation with Towel - 2 x daily - 5 reps - 10 seconds hold - Cervical Extension AROM with Strap - 2 x daily - 5 reps - 10 seconds hold - Supine Cervical Retraction with Towel - 2 x daily - 5 reps - 10 seconds hold PT Treatment Times Therex Total Time 31 Direct Treatment Time 31 Goals: Physical Therapy Ortho Goals: CARRYING/MOVING/HANDLING: Patient will be able to place items on a shelf overhead in 3 weeks SELF CARE: Patient will be able to complete ADL's including bathing, dressing, and hair care without difficulty in 3 weeks. IMPAIRMENT: Patient will demonstrate improved postural awareness in PT sessions to facilitate mechanical alignment and function in 3 weeks. IMPAIRMENT: Pt will report no pain when reaching away from and behind the body in 6 weeks IMPAIRMENT: Improve gross MMT of the Shoulder to at least 4+/5 in 6 weeks IMPAIRMENT: Improve AROM of the cervical spine to no movement loss in 6 weeks. IMPAIRMENT: Improve AROM of Shoulder Flexion and Abduction to at least 160 degrees in 6 weeks. IMPAIRMENT: Improve AROM of Shoulder ER to at least 60 degrees in 6 weeks. OTHER: Patient will be able to properly demonstrate independence with HEP in 2 weeks. Patient Education: Quality of movement, Verbal HEP, and Diagnosis and recovery specific education with patient verbalized understanding. Post-Treatment Pain Scale: 0 muscle soreness Assessment: Patient had an expected response to treatment. Skilled Intervention demonstrated by modifications of treatment per exercise log including increased load, increased mobility, and assessment of patient's response and safety interventions per exercise log. Progress towards goals as expected. Plan for Next Visit: Treatment Visit with focus on continue with SLICK Recinos PT STATE LICENSE, [id number] documented in this encounter [facility] 09-05-2024 History of Presen t illness Narrative [facility] OUTPATIENT REHABILITATION Evaluation Today's Date 09/05/2024 Patient Name: Agustina Dunlap Date of : 1965 Case Name: Neck Pain Functional Diagnosis: 1. Neck pain 2. Essential hypertension Clinical Information: Subjective Referring Diagnosis: Neck Pain History of Present Illness Subjective History: Pt reports c/o significant ROM loss of both shoulders and the neck as well as weakness in the arms. He reports occasional pain in the neck but mostly activity dependent. He denies radicular sx in the arms as well as headaches. He reports no known injury or trauma. He did complete PT back in 2018 for shoulder impingement and experience relief of sx with improved ROM and strength. To date, he has not had imaging of the neck or shoulders. 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 Side Bend Loss: 75% Other Findings Sensation: normal Shoulder Right Shoulder Range of Motion: Flexion: Active: 142 Extension: Active: 74 Abduction: Active: 125 IR 0 deg.: ROM Right Active IR 0: mid thoracic. ER 0 deg.: Active: 48 Muscle Strength:Muscle Strength Right: strength is WFL within available ROM. Special Testing Cross Arm: Negative Empty can: Negative Neer/Impingement: Positive IR lag: Negative Left Shoulder Range of Motion: Flexion: Active: 134 Extension: Active: 76 Abduction: Active: 120 IR 0 deg.: ROM Left Active IR 0: lower thoracic. ER 0 deg.: Active: 44 Muscle Strength:Muscle Strength Left: strength is WFL within available ROM. Special Testing Cross arm: Negative Empty can: Negative Neer/Impingement: Negative IR lag: Negative Treatments: Physical Therapy Exercise Log - 09/05/24 1326 OTHER Precautions/Contraindications Supervising PT: Pola Notes Eval: 1:02 - 1:44 Therapeutic Exercise (94806) Intervention initial HEP: Parameters Pulleys Intervention pendulums Parameters flexion wall slides Intervention IR towel stretch Parameters doorway pec stretch and ER stretch Intervention posterior capsule stretch Parameters standing cane ext behind the back Intervention cervical SNAGs and ext over towel Parameters supine chin tucks w/ head prop Parameters Access Code: [email or web address] URL: [email or web address] Date: 09/05/2024 Prepared by: Mohan Escobedo Exercises - Seated Shoulder Scaption AAROM with [place] at Side - 2 x daily - 10 reps - Seated Shoulder Abduction AAROM with [place] Behind - 2 x daily - 10 reps - Circular Shoulder Pendulum with Table Support - 2 x daily - 20 reps - Shoulder Flexion Wall Slide with Towel - 2 x daily - 10 reps - 5sec hold - Standing Shoulder Internal Rotation Stretch with Towel - 2 x daily - 5 reps - 10sec hold - Corner Pec Major Stretch - 2 x daily - 3-5 reps - 20 hold - Standing Shoulder External Rotation Stretch in Doorway - 2 x daily - 10 reps - 20 seconds hold - Standing Shoulder Posterior Capsule Stretch - 2 x daily - 10 reps - 20 seconds hold - Standing Shoulder Extension with Dowel - 2 x daily - 10 reps - 3 seconds hold - Seated Assisted Cervical Rotation with Towel - 2 x daily - 5 reps - 10 seconds hold - Cervical Extension AROM with Strap - 2 x daily - 5 reps - 10 seconds hold - Supine Cervical Retraction with Towel - 2 x daily - 5 reps - 10 seconds hold PT Treatment Times Total Treatment Time 42 Goals: Physical Therapy Ortho Goals: CARRYING/MOVING/HANDLING: Patient will be able to place items on a shelf overhead in 3 weeks SELF CARE: Patient will be able to complete ADL's including bathing, dressing, and hair care without difficulty in 3 weeks. IMPAIRMENT: Patient will demonstrate improved postural awareness in PT sessions to facilitate mechanical alignment and function in 3 weeks. IMPAIRMENT: Pt will report no pain when reaching away from and behind the body in 6 weeks IMPAIRMENT: Improve gross MMT of the Shoulder to at least 4+/5 in 6 weeks IMPAIRMENT: Improve AROM of the cervical spine to no movement loss in 6 weeks. IMPAIRMENT: Improve AROM of Shoulder Flexion and Abduction to at least 160 degrees in 6 weeks. IMPAIRMENT: Improve AROM of Shoulder ER to at least 60 degrees in 6 weeks. OTHER: Patient will be able to properly demonstrate independence with HEP in 2 weeks. CPT Code 24744 Low 37713 Moderate 43804 High History 0 1-2 3+ Comorbidities: HTN, Personal factors: chronicity or severity of the current condition Examination of body systems (elements of body structures & functions, activity limitations, and/or participation restrictions) 1-2 elements 3+ elements 4+ elements See below clinical impression Clinical Presentation Stable Evolving Unstable As evidenced by reproduction of or changes in symptoms with certain movements and reports of fluctuating symptoms over time Decision Making Low (FOTO >/= 69) Moderate (FOTO 34 - 68) High (FOTO </= 33) Clinical judgement Pt is a 58 y.o. male who presents to PT services with c/o limited shoulder ROM. Upon assessment, pt has been found with the following impairments: impaired posture, decreased ROM, and pain. 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 The pt would benefit from skilled PT services focused on the above listed impairments and limitations in order to safely progress pt to their desired level of function. Pt to be discharged from OP PT services if/when goals are met, if they fail to make progress with conservative management in PT, if their level of progress plateaus, or if they do not maintain compliance with attendance or HEP. At this time, it is my clinical judgment that services are medically necessary. Plan of Care Frequency of Visits: 2 times per week Duration: 6 weeks Interventions: Therapeutic Exercise (29687), Neuromuscular Re-Education (52778), Manual Therapy (26901), Therapeutic/ Functional Activities (54318), Hot/Cold Pack (10774), and Electrical Stimulation - Unattended (24999) Rehab Potential: fair to good Patient Education Provided Pt was educated on the benefits of therapy and importance of compliance with sessions and HEP for rehabilitation. Pt was also educated on treatment diagnosis, POC, and frequency/duration of treatment. Mohan Escobedo PT State License, [id number] documented in this encounter [facility] 01-13-2024 History of Presen t illness Narrative [facility] OUTPATIENT REHABILITATION Evaluation Today's Date 01/13/2024 Patient Name: Agustina Dunlap Date of : 1965 Case Name: Neck and Bl shoulder pain Functional Diagnosis: 1. Bilateral shoulder pain, unspecified chronicity 2. Chronic right shoulder pain 3. Chronic left shoulder pain 4. Neck pain 5. Essential hypertension Clinical Information: Subjective Referring Diagnosis: Neck and Bl shoulder pain History of Present Illness Subjective History: Patient reports he had impingement in Bl (R>L) shoulders 5 years ago and he did therapy that time. He has pain in r shoulder noticeable during reaching away, back and lifting. Denies any resting pain or sleep disturbance. He has limited mobility at neck and shoulders. Neck: reports tightness, he had virtual therapy for that to help with tightness and he has been doing those exercises and try to keep it loose. Denies any weakness in hand or T+N in hand. Denies any pain in neck. Denies any injury. Pain Scale Pain location: shoulder and neck (neck stiffness) Average Pain: no resting pain. Pain at highest: 1/10 (using 1/10) Personal Goals: Wants to gain ROM in neck and shoulder Social Support: Islam, social, or cultural considerations to be made aware of before starting treatment: No Sleep Assessment Sleep disturbance: no Sleep Disturbance Barriers to Care: Chronicity or severity of impairments Fall risk screening Fallen 2 or more times in the last 12 months: No Injured as a result of a fall in the last 12 months: No Islam, social, or cultural considerations to be made aware of before starting treatment: No Cervical Spine: Range of Motion - Cervical Flexion Loss - Cervical: 65. Extension Loss - Cervical: 20. Rt Rotation Loss - Cervical: 60. Lt Rotation Loss - Cerivcal: 60. Rt Side Bend Loss - Cervical: 25. Lt Side Bend Loss - Cervical: 15. Muscle Strength Right: WFL Left: WFL Special Tests Spurling Right: Negative Left:Negative Compression/ Distraction: Negative Other Findings Sensation: normal Shoulder Right Shoulder Range of Motion: Flexion: Active: 120 Passive: 150 Extension: Active: 70 Abduction: Active: 105 Passive: 115 IR 0 deg.: ROM Right Active IR 0: reaching to inferior scapular angle of L side. IR 90 deg.: Active: 70 Passive: 80 ER 90 deg.: Active: 40 Passive: 65 Muscle Strength: WFL Special Testing Cross Arm: Negative Drop Arm: Negative Empty can: Negative Neer/Impingement: Negative Speed's test: Negative Left Shoulder Range of Motion: Flexion: Active: 125 Passive: 150 Extension: Active: 70 Abduction: Active: 100 Passive: 100 IR 0 deg.: ROM Left Active IR 0: reaching to central spine mid thoracic. IR 90 deg.:Active: 65 Passive: 75 ER 90 deg.: Active: 65 Passive: 75 Muscle Strength: WFL Special Testing Cross arm: Negative Drop arm: Negative Empty can: Negative Neer/Impingement: Negative Speed's test: Negative Additional Comments: Impingement syndrome: Schuler-Juan: -ve Neer impingement test : -ve Empty can: -ve Painful arc: -ve External rotation resistance: pain and weakness : -ve Treatments: Physical Therapy Exercise Log - 01/13/24 1221 OTHER Precautions/Contraindications adhesive capsilitis? neck and shoulder mobility ex Therapeutic Exercise (76765) Parameters Access Code: [email or web address] URL: [email or web address] Date: 01/13/2024 Prepared by: Scott Recinos Exercises - Shoulder Flexion Wall Slide with Towel - 1 x daily - 1 sets - 10 reps - 5sec hold - Shoulder Scaption Wall Slide with Towel - 1 x daily - 1 sets - 10 reps - 5sec hold - Standing Shoulder Internal Rotation Stretch with Towel - 1 x daily - 5 reps - 10sec hold - Supine Shoulder External Rotation with Dowel - 1 x daily - 5 reps - 10sec hold - Single Arm Serratus Punches in Supine with Dumbbell - 1 x daily - 7 x weekly - 1 sets - 10 reps - Standing Shoulder Extension with Dowel - 1 x daily - 10 reps - 3 seconds hold - Shoulder extension with resistance - Neutral - 1 x daily - 1-3 sets - 10 reps - Standing Bilateral Low Shoulder Row with Anchored Resistance - 1 x daily - 1-3 sets - 10 reps - Shoulder External Rotation and Scapular Retraction with Resistance - 1 x daily - 1-3 sets - 10 reps - Standing Shoulder Horizontal Abduction with Resistance - 1 x daily - 1-3 sets - 10 reps - Seated Upper Trapezius Stretch - 1-2 x daily - 3 reps - 20 seconds hold - Corner Pec Major Stretch - 1 x daily - 3-5 reps - 20 hold - Seated Scapular Retraction - 1-2 x daily - 10 reps - 3-5 hold - Standing Cervical Rotation AROM with Overpressure - 1 x daily - 1 sets - 10 reps - 3sec hold - Seated Cervical Retraction - 1-2 x daily - 1 sets - 10 reps - 5sec hold Treatment Plan: Frequency of Visits: twice per week Duration: 4-6 weeks Interventions: Therapeutic Exercise (64694), Manual Therapy (41791), and Hot/Cold Pack (73808) Rehab Potential: fair Goals: Physical Therapy Ortho Goals: Patient will safely, correctly and independently demonstrate the ability to perform a progressive HEP to achieve maximal rehabilitation potential and prevent this condition from recurring. 2 weeks Patient will demonstrate less tenderness and tightness in neck muscles during neck motions. 6 weeks Patient will improve cervical rotation ROM to at least 60 degree from to ease scan of environment while driving. 6 weeks Patient will demonstrate increased shoulder ER/Abd/flexion ROM to enable patient to reach overhead. 6 weeks Patient will demonstrate increased shoulder IR to enable patient to reach on back for self-care and dressing. 6 weeks Patient Education provided: Patient was educated about the condition, precautions, and physical therapy plan of care. Clinical Impression: Pt is a 58 y.o. year old male who presented to the clinic with neck and BL shoulder pain. Upon assessment, pt has been found with the following impairments: Pain, decreased ROM; poor posture, impaired tolerance to do activities. 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 Pt to be discharged from OP PT services if/when goals are met, if they fail to make progress with conservative management in PT, if their level of progress plateaus, or if they do not maintain compliance with attendance or HEP. At this time, it is my clinical judgment that services are medically necessary. Scott Recinos, PT STATE LICENSE, [id number] documented in this encounter [facility] 01-08-2021 History of Presen t illness Narrative Images from the original note were not included. Established Patient Visit Magali Mcgill DPM Patient Name: Agustina Dunlap. . Date of : 1965, 55 y.o.. Gender: male. Subjective: Patient is a pleasant 55-year-old male who presents to clinic complaining of pain to his left third toe secondary to fungal and ingrown nature of the toenail. This has been ongoing for several years and worsening. Patient is ready to have it be removed today. No other pedal complaints at this time. Denies fevers, chills, nausea, vomiting, chest pain, shortness of breath, or any other constitutional symptoms. Physical Examination: BP 117/65 Pulse 74 Temp 97 F (36.1 C) General Appearance: Alert, cooperative, no distress, appears stated age. Podiatric Exam Vascular: DP and PT pulses are palpable 2/4. Capillary refill time is brisk to distal digits. Skin temperature is warm to warm from proximal tibial tuberosity to distal digit. Neurological: Gross sensation is intact. Protective sensation is intact. Dermatologic: The left third toenail is incurvated into the medial lateral borders and painful on palpation. The toenail is also thickened, discolored with subungual debris. Interdigital spaces are clean dry and intact. Musculoskeletal: Pain on compression to the left third toenail. Ankle joint range of motion is intact. Muscle strength is 5/5 to dorsiflexors, plantar flexors, inverters and everters. Compartments soft and compressible. No calf pain Assessment: 1. Onychomycosis 2. Nail dystrophy 3. Onychocryptosis 4. Toe pain, left Plan: Patient was seen and evaluated. Discussed all clinical findings Patient has a onychocryptotic and onychomycotic left third toenail. This has been causing him pain and discomfort for several years. -With patient's history of ingrown toenail and pain, I discussed performing a permanent phenol matrixectomy procedure. Patient is agreeable to this plan. See procedure below. PROCEDURE NOTE: Written consent was obtained prior to beginning the procedure. All risks and benefits were discussed with patient. No guarantees were made. PREOPERATIVE DX: Onychomycosis, onychocryptosis, left third toenail POSTOPERATIVE DX: Onychocryptosis, onychomycosis, left third toenail PROCEDURE PERFORMED: Phenol matrixectomy procedure, left third toe and The patient's left third toe was anesthetized using 6 cc of 2% lidocaine plain. The left third toe was scrubbed and prepped under proper sterile technique. The left third toe nail was excised. No residual nail spicules were found. Phenol was utilized to cauterize the nail matrix. The surgical site was flushed copiously with sterile saline. Applied wound gel to the surgical site. The left third toe was then dressed using 4 x 4, Kerlix and Coban. Patient tolerated the procedure well without any complications. -At the end of the procedure, the patient was provided with at home instructions. -Patient was educated on the signs of infection such as excessive redness, swelling, drainage, malodor, pain, etc. Patient understands to call our office immediately or to report to the emergency room. -All questions were answered to patient satisfaction. Patient understands to call with any questions or concerns. -Patient will return to clinic in 1 week for evaluation Magali Mcgill DPM, MS Podiatric Physician & Surgeon documented in this encounter [facility] 01-05-2021 History of Presen t illness Narrative Images from the original note were not included. Established Patient Visit Magali Mcgill DPM Patient Name: Agustina Dunlap. . Date of : 1965, 55 y.o.. Gender: male. Subjective: Patient is a pleasant 55-year-old male who presents to clinic for his 2 week postop evaluation regarding his third toe phenol matrixectomy procedure. Patient states that he has been soaking and applying triple antibiotic ointment as instructed. He is also completing his antibiotic course. He denies any pain or discomfort with ambulation. No other pedal complaints at this time. Denies fevers, chills, nausea, vomiting, chest pain, shortness of breath, or any other constitutional symptoms. Physical Examination: BP (!) 160/91 Pulse 60 Temp 98.1 F (36.7 C) General Appearance: Alert, cooperative, no distress, appears stated age. Podiatric Exam Vascular: DP and PT pulses are palpable 2/4. Capillary refill time is brisk to distal digits. Skin temperature is warm to warm from proximal tibial tuberosity to distal digit. Localized erythema and edema noted to the distal tuft of the third toe, left foot. Neurological: Gross sensation is intact. Protective sensation is intact. Dermatologic: The left third toe nail is absent secondary to phenol matrixectomy procedure. No appreciable erythema, edema, drainage or any acute signs of infection. Interdigital spaces are clean dry and intact. Musculoskeletal: No pain on palpation to the left third toe. Ankle joint range of motion is intact. Muscle strength is 5/5 to dorsiflexors, plantar flexors, inverters and everters. Compartments soft and compressible. No calf pain Assessment: 1. Paronychia, toe, left Plan: Patient was seen and evaluated. Discussed all clinical findings Patient's left third toe infection has resolved at this time. Patient's left third toe phenol matrixectomy procedure is healing appropriately at this time. Patient is to continue applying triple and biotic ointment and a Band-Aid. All questions were answered to patient satisfaction. Patient understands to call with any questions or concerns. Follow-up as needed. Magali Mcgill DPM, MS Podiatric Physician & Surgeon documented in this encounter [facility] 12-29-2020 Miscellaneous Notes Addended by: MAGALI MCGILL on: 12/29/2020 09:47 AM Modules accepted: Orders documented in this encounter [facility] 12-29-2020 History of Presen t illness Narrative Images from the original note were not included. Established Patient Visit Magali Mcgill DPM Patient Name: Agustina Dunlap. . Date of : 1965, 55 y.o.. Gender: male. Subjective: Patient is a pleasant 55-year-old male who presents to clinic for his 1 week postop evaluation regarding his third toe phenol matrixectomy procedure. Patient states that he has not been soaking or applying triple antibiotic ointment or a Band-Aid. He denies any pain or discomfort with ambulation. No other pedal complaints at this time. Denies fevers, chills, nausea, vomiting, chest pain, shortness of breath, or any other constitutional symptoms. Physical Examination: BP (!) 160/83 Temp (!) 55 F (12.8 C) General Appearance: Alert, cooperative, no distress, appears stated age. Podiatric Exam Vascular: DP and PT pulses are palpable 2/4. Capillary refill time is brisk to distal digits. Skin temperature is warm to warm from proximal tibial tuberosity to distal digit. Localized erythema and edema noted to the distal tuft of the third toe, left foot. Neurological: Gross sensation is intact. Protective sensation is intact. Dermatologic: The left third toe nail is absent secondary to phenol matrixectomy procedure. Localized erythema and edema noted at the distal tuft of the left third toe. Scant serous drainage. Interdigital spaces are clean dry and intact. Musculoskeletal: No pain on palpation to the left third toe. Ankle joint range of motion is intact. Muscle strength is 5/5 to dorsiflexors, plantar flexors, inverters and everters. Compartments soft and compressible. No calf pain Assessment: 1. Paronychia, toe, left Plan: Patient was seen and evaluated. Discussed all clinical findings Patient's left third toe is concerning for a mild infection post phenol matrixectomy procedure. This is secondary to patient not following up with proper postoperative protocol. Advised patient on the importance of soaking his feet once daily for 15 minutes with Epson salt and covering the toe with an antibiotic ointment and a Band-Aid. At this time, an oral antibiotic was prescribed and sent to his pharmacy. All questions were answered to patient satisfaction. Patient understands to call with any questions or concerns. Follow-up in 1 week for evaluation. Magali Mcgill DPM, MS Podiatric Physician & Surgeon documented in this encounter [facility] 12-22-2020 Instructions Jenni Guillermo, TECHNOLOGIST - 12/22/2020 8:41 AM EDT Nail Surgery Post-Operative Instructions General Information Stay off your feet as much as possible today. You may wear any shoe, sandal, or open toe footwear that does not squeeze or constrict your toe. Your toe may remain numb for up to 6-10 hours after the procedure. Bleeding/Drainage Slight bleeding, discoloration and/or red, pink, orange drainage is normal. Discomfort You can elevate your foot to help alleviate minor swelling, bleeding and discomfort. You may also take aspirin, Tylenol or other [id number] pain relievers as directed on the package. If pain is not controlled to your comfort, please contact our office. Removing the surgical bandage/dressing The day after the surgery, carefully remove the dressing and shower/bathe as normal. If the gauze or dressing sticks to the surgical area, dampen it with water or shower/bathe with the dressing in place. This will make the dressing easier to remove with minimal discomfort. Blot dry with a clean cloth. A band-aid and antibiotic ointment should be changed twice daily on the surgical area until your follow-up appointment with the doctor. documented in this encounter [facility] Evaluation note Diagnosis DANITA (obstructive sleep apnea) Obstructive sleep apnea (adult) (pediatric) [facility] Paronychia, toe, left- Primary [facility] Diagnosis Paronychia, toe, left- Primary [facility]* Diagnosis Onychomycosis- Primary Dermatophytosis of nail Nail dystrophy Other specified disease of nail Onychocryptosis Ingrowing nail Toe pain, left Pain in soft tissues of limb [facility] noteNo assessment information availableWUniversity [facility] Work Phone: Evaluation note* Diagnosis Chronic right shoulder pain- Primary Pain in joint, shoulder region Chronic left shoulder pain Pain in joint, shoulder region Neck pain Cervicalgia Essential hypertension Unspecified essential hypertension [facility]* Diagnosis Bilateral shoulder pain, unspecified chronicity- Primary Chronic right shoulder pain Pain in joint, shoulder region Chronic left shoulder pain Pain in joint, shoulder region Neck pain Cervicalgia Essential hypertension Unspecified essential hypertension [facility]* Diagnosis Neck pain Cervicalgia Essential hypertension Unspecified essential hypertension [facility]* Diagnosis Neck pain- Primary Cervicalgia [facility]* Diagnosis Neck pain- Primary Cervicalgia [facility]* Name Dates Details Instructions not documented [place] [id number] DO Work Phone: Reason for referral (narrative)No reason for referral information availableSt. 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 Advance Directives and Livin g Will No copy 12/27/19 Documents on File Type Date Recorded Patient Advanced Practice Registered Nurse Expl anation Advance Directives and Living Will 07/31/2020 7:15 PM No copy 12/27/19 Documents on File Type Date Recorded Patient Advanced Practice Registered Nurse Expl anation Advance Directives and Living Will 07/31/2020 7:15 PM No copy 12/27/19 Reason for Referral Status Reason Specialty Diagnoses / Procedures Referred By Contact Referred To Contact [facility] Diagnoses DANITA (obstructive sleep apnea) DANITA Procedures SPLIT NIGHT AHI > 5 SLEEP STUDY SPLIT Artur Vargas MD [address] [place] [address] Sleep Medicine [address] [place] [address] Specialty Diagnoses / Procedures Referred By Contac t Referred To Contact Rehabilitation Diagnoses Chronic right shoulder pain Chronic left shoulder pain Neck pain Essential hypertension Mary Walters, [employer] [address] [place] [address] [facility] [place] [address] [address] [place] [address] Referral ID Status Reason Start Date Expiration Date V isits Requested Visits Authorized [id number] Authorized 12/28/2023 12/27/2024 1 1 Chief Complaint and Reason for Visit Chief Complaint URINE DRUG SCREEN Chief Complaint Admit Date LEFT LEG October 29, 2024 10:3 7am Additional Source Comments (unrecognized sect ion and content) No Status Records FoundNo Status Records FoundNo Status Records FoundNo Status Records FoundNo Status Records FoundNo Status Records FoundNo Status Records FoundNo Status Records Found INFORMATION SOURCE (unrecogn ized section and content) DATE CREATED AUTHOR 03/19/2018 [facility] DATE CREATED AUTHOR AUTHOR'S ORGANIZ ATION 05/30/2018 [facility] DATE CREATED AUTHOR AUTHOR'S ORGANIZ ATION 10/06/2018 [facility] DATE CREATED AUTHOR AUTHOR'S ORGANIZ ATION 07/30/2020 [facility] DATE CREATED AUTHOR AUTHOR'S ORGANIZ ATION 01/05/2021 [facility] DATE CREATED AUTHOR AUTHOR'S ORGANIZ ATION 03/17/2023 [facility] DATE CREATED AUTHOR AUTHOR'S ORGANIZ ATION 04/24/2023 [facility] DATE CREATED AUTHOR AUTHOR'S ORGANIZ ATION 10/01/2024 [facility] Reason for Visit (unrecogniz ed section and content) Status Reason Specialty Diagnoses / Procedures Referred By Contact Referred To Contact [facility] Diagnoses DANITA (obstructive sleep apnea) DANITA Procedures SPLIT NIGHT AHI > 5 SLEEP STUDY SPLIT Artur Vargas MD [address] [place] [address] Sleep Medicine [address] [place] [address] Reason Comments Post-op Post op 3rd left. He has not been dressing. Toe is red. Reason Comments Post-op Post op nail proceed ure. Reason Comments Nail Problem Patient is here to ave left 3rd toenail removed. Specialty Diagnoses / Procedures Referred By Rk brewster Referred To Contact Rehabilitation Diagnoses Chronic right shoulder pain Chronic left shoulder pain Neck pain Essential hypertension Mary Walters, [employer] [address] [place] [address] [facility] [place] [address] [place] [address] Referral ID Status Reason Start Date Expiration Date V isits Requested Visits Authorized [id number] Authorized 12/28/2023 12/27/2024 1 40 Reason Comments Physical Therapy Specialty Diagnoses / Procedures Referred By Contgracie t Referred To Contact Rehabilitation Diagnoses Neck pain Essential hypertension Mary Walters CNP [address] [place] [address] Phone: tel: fax: [facility] [address] [place] [address] Phone: tel: fax: Referral ID Status Reason Start Date Expiration Date V isits Requested Visits Authorized [id number] Authorized 08/24/2024 08/24/2025 9 40 Care Teams (unrecognized sec tion and content) Certified Nutritionist Relationship Specialty Start Date End Date Kinjal Whitakeralex [employer] [address] [place] [id number] PCP - General Family Medicine 12/27/19 Certified Nutritionist Relationship Specialty Start Date End Date Blair Whitakerlaurent Milner [employer] [address] [place] [address] PCP - General Family Medicine 12/27/19 Certified Nutritionist Relationship Specialty Start Date End Date Kinjal Whitaker [employer] [address] [place] [address] PCP - General Family Medicine 12/27/19 Team Status: Active Member Role Status Dates No Primary Care Physician Primary Care Provider Active Team Status: Inactive Member Role Status Dates No Primary Care Physician Primary Care Provider Active Dr. Dimas Pelletier MD Attending Provider, Referraimundo g Provider Active Certified Nutritionist Relationship Specialty Start Date End Date Mary Walters CNP [address] [place], [place] [phone] PCP - General Nurse Practitioner 08/02/23 Certified Nutritionist Relationship Specialty Start Date End Date Mary Walters CNP [address] [place], [place] [phone] PCP - General Nurse Practitioner 08/02/23 Certified Nutritionist Relationship Specialty Start Date End Date WilinarcisaMary CNP [address] [place] [phone] PCP - General Nurse Practitioner 08/02/23 Certified Nutritionist Relationship Specialty Start Date End Date Mary Walters CNP [address] [place] [phone] PCP - General Nurse Practitioner 08/02/23 Certified Nutritionist Relationship Specialty Start Date End Date AakashMary sepulveda CNP [address] [place] [phone] PCP - General Nurse Practitioner 08/02/23 Team Status: Active Member Role/Relationship Status Dates No Primary Care Physician Primary Care Provider Active Team Status: Inactive Member Role/Relationship Status Dates No Primary Care Physician Primary Care Provider Active Start: October 29, 2024 End: October 29, 2024 No Primary Care Physician Referring Provider Active Start: October 29, 2024 End: October 29, 2024 MACIEL Sepulveda Attending Provider Active Start: October 29, 2024 End: October 29, 2024 Goals (unrecognized section and content) Goals may be documented in a n alternate sectionGoals may be documented in an alternate section FOR RECORDS PERTAINING TO PATIENTS WHO ARE OR HAVE BEEN ENROLLED IN A CHEMICAL DEPENDENCY/SUBSTANCEABUSE PROGRAM, SOME INFORMATION MAY BE OMITTED. This clinical summary was aggregated from multiple sources. Caution should be exercised in using it in the provision of clinical care. This summary normalizes information from multiple sources, and as a consequence, information in this document may materially change the coding, format and clinical context of patient data. In addition, data may be omitted in some cases. CLINICAL DECISIONS SHOULD BE BASED ON THE PRIMARY CLINICAL RECORDS. [facility] [employer] [facility]. provides no warranty or guarantee of the accuracy or completeness of information in this document.
--- NOTE | 2024-10-30 07:44 | PCM.PRE.AN2 ---
ASA Classification* ASA Classification ASA Classification: 2 Assessment & Plan Anesthesia* Anesthesia Assessment Anesthesia Assessment: Discussed sedation and/or anesthesia options, risks, benefits, and alternatives with patient/parents/legal guardian/POA. Questions invited. The patient/parents/legal guardian/POA seems to understand and agrees to proceed with anesthesia plan. Reviewed the physical assessment, medical history, allergy history and patient home medications list prior to surgery/procedure/anesthetic and documented any changes. Performed airway and anesthesia risk assessments. 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 When Was Last Pacemaker Check QUESTION #4 FULL TEXT: You/Your Family Experience fever (hyperthermia) with Anesthesia Last Oral Intake Last Oral intake: Last Oral Intake NPO since Meds taken in AM with sips of water? Meds patient instructed to take am of surgery PONV PONV - sales development associate: PONV - sales development associate Female No 10/30/24 07:32 HX of Motion Sickness No 10/30/24 07:32 HX of N/V After Surgery Yes 10/30/24 07:32 Non-Smoker Yes 10/30/24 07:32 Duration of Surgery greater Yes 10/30/24 07:32 than 60 minutes Number of Risk Factors 3 10/30/24 07:32 PONV Score Moderate Risk 10/30/24 07:32 Height & Weight Height & Weight: Anesthesia: Height & Weight Height 5 ft 10 in 10/29/24 10:52 Respiratory Assessment Respiratory Assessment - sales development associate: Respiratory Tract Infection Hx - sales development associate Hx Respiratory Tract Infection No 10/30/24 07:32 STOP Sleep Apnea STOP Sleep Apnea - sales development associate: STOP Sleep Apnea - sales development associate Hx Hypertension Yes 10/30/24 07:32 Hx Sleep Apnea Yes 10/30/24 07:32 CPAP Yes: sometimes 10/30/24 07:32 BIPAP No 10/30/24 07:32 Do you snore loudly (louder than talking or can be heard Do you often feel tired/ fatigued/ sleepy during daytime? Has anyone observed you stop breathing during sleep? STOP Results Positive 10/30/24 07:32 QUESTION #5 FULL TEXT : Do you snore loudly (louder than talking or can be heard through closed doors)? 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 Specify any problems Hx of Preganancy in last 3 N/A 10/30/24 07:32 Months Nurse Filling Out Transfusion DPRIEST 10/30/24 07:32 & Questions: Date: 10/30/24 10/30/24 07:32 Time: 07:35 10/30/24 07:32 Patient unable to answer at this time (ie. confused, unrespo /Reproduction History /Reproductive History - sales development associate: /Reproductive Hx- sales development associate Hx Now No 10/30/24 07:32 Gestational Age (in weeks): EDC: Hx Hx Para Hx Section SAB No 10/30/24 07:32 Active Medications Active Medications: Current Medications Generic Name Dose Route Start Last Admin Trade Name Freq PRN Reason Stop Dose Admin Cefazolin Sodium 2 gm/ Sodium 110 mls @ 200 mls/hr 10/30/24 08:30 Chloride IV 10/30/24 09:02 INTRAOP [facility] Medical History (Updated 10/30/24 @ 07:31 by Dnaia Campbell) Gastric reflux Sleep apnea CPAP (continuous positive airway pressure) dependence Cataract (lens) fragments in eye following cataract surgery, bilateral Insomnia Hypertension Home Medications Medication Instructions Recorded Last Taken Type amlodipine 5 mg tablet 5 mg PO QDAY 10/29/24 10/29/24 History montelukast 10 mg tablet 10 mg PO QDAY 10/29/24 10/29/24 History omeprazole 40 mg capsule,delayed 40 mg PO QAM 10/29/24 10/29/24 History release sodium, calcium, magnesium, 3.75 g PO HS 10/29/24 10/29/24 History potassium oxybates 0.5 gram/mL oral soln (Xywav) magnesium citrate 100 mg tablet 500 mg PO QDAY 10/30/24 10/29/24 History Allergy/AdvReac Type Severity Reaction Status Date / Time No Known Allergies Allergy Verified 10/30/24 07:21 Family History (Updated 10/29/24 @ 10:47 by Gabbie De La Paz) Other Heart disease Hypertension Surgical History (Updated 10/29/24 @ 10:47 by Gabbie De La Paz) History of eye surgery Social History (Updated 10/29/24 @ 10:48 by Gabbie De La Paz) Smoking Status: Never smoker alcohol intake: current alcohol intake frequency: 0-2 drinks per day substance use type: does not use Review of Systems (Anesthesia) ROS Narrative System reviewed and no additional complaints, except as documented.
[2024-10-30] MEDS: Lactated Ringers 1,000 ML 15 ML IV (07:47)
--- NOTE | 2024-10-30 07:52 | HP.PCM_ITS ---
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 Accompanied by: Is patient in pain?: Yes (left anterior thight) Pain scale (1-10): 2 Allergies No Known Allergies Allergy (Verified 10/29/24 10:43) Medications Medication Instructions Recorded Confirmed Type amlodipine 5 mg tablet 5 mg PO QDAY 10/29/24 10/29/24 History montelukast 10 mg tablet 10 mg PO QDAY 10/29/24 10/29/24 History omeprazole 40 mg capsule,delayed 40 mg PO QAM 10/29/24 10/29/24 History release sildenafil 100 mg tablet (Viagra) 100 mg PO QDAY PRN 10/29/24 10/29/24 His tory sodium, calcium, magnesium, 3.75 g PO HS 10/29/24 10/29/24 History potassium oxybates 0.5 gram/mL oral soln (Xywav) PFSH Medical History (Updated 10/29/24 @ 16:[address] Tre Rust, DO) Cataract (lens) fragments in eye following cataract surgery, bilateral Insomnia Hypertension Surgical History (Updated 10/29/24 @ 10:47 by Gabbie De La Paz) History of eye surgery Family History (Updated 10/29/24 @ 10:47 by Gabbie De La Paz) Other Heart disease Hypertension Social History (Updated 10/29/24 @ 10:48 by Gabbie De La Paz) Smoking Status: Never smoker alcohol intake: current alcohol intake frequency: 0-2 drinks per day substance use type: does not use HPI LEFT LEG Details: This documentation accurately reflects the service provided and the decisions made by Jolly west NP-C 10/29/24 1034. Part of today’s visit was documented by Mimi, acting as scribe. AGUSTINA MARIE is a 59 year old M here today for s/p fall and ED visit yesterday. Reports XRAY left knee negative. left anterior thigh pain, swelling continues. Voiced concern for "blown quadriceps". pain radiates to left groin and knee. numbness to left foot after sitting for a while. LLE weakness. DOI 10/29/24 he was stepping down did not realize there was a step landed hard resulting in an isometric contraction of his quad immediately had pain and inability to extend his knee. Pain mostly located superior to the patella and anterior thigh. Denies any other complaints. Has not been able to extend his knee since actively . This happened in [place], patient was assisted to his car and drove to [place] where to stop to be seen at emergency room. Reports negative knee x-rays but was told concern for quadriceps injury and advised to follow with orthopedics. Patient does live locally. Has been wearing a knee immobilizer and using crutches for partial weightbearing. Symptoms are aggravated with weightbearing, attempting to lift leg out straight. Prior to this he had no difficulties. Arrives in wheelchair with for today's visit. Patient is icing and activity modification. Did not fill prescription hydrocodone yet. ROS Const All systems reviewed & are unremarkable except as noted in H and other (A&O x 3, no apparent distress. No recent illness.) Denies chills, Denies fatigue, Denies fever(s), Denies frequent falls, Denies headache(s) and Reports weakness Eyes Reports system reviewed and no additional complaints, except as documented ENT Denies headache(s) Card Reports system reviewed and no additional complaints, except as documented, Denies chest pain and Denies dyspnea Resp Reports system reviewed and no additional complaints, except as documented, Denies cough and Denies dyspnea GI Denies abdominal pain, Denies constipation, Denies diarrhea, Denies fecal incontinence, Denies nausea and Denies vomiting Denies urinary incontinence Musc Reports as per HPI, Reports abnormal gait, Reports arthralgias, Reports joint swelling, Reports limited range of motion and Reports stiffness Skin/Breast Denies rash Neuro Yes abnormal gait, No convulsions, No frequent falls, No headache(s) and Yes weakness Psych Reports system reviewed and no additional complaints, except as documented Endo Denies fatigue Gm/Lymph Reports system reviewed and no additional complaints, except as documented, Denies easy bleeding and Denies easy bruising Ortho Exam General General: Yes no acute distress and Yes well groomed Neurologic: Yes alert and Yes oriented x3 Psychologic: Yes reasonable and appropriate Right Knee Date of injury: 10/28/24 Skin/Wound: Yes swelling KNEE: Skin is pink, warm, dry and intact. There is no ecchymosis noted. There is moderate swelling noted distal thigh to proximal lower leg, mild swelling through the ankle Range of motion: Limited, unable to extend knee past 30 degrees independently or holding extended position. Flexion to 90 degrees. Palpation: Mild pain on palpation of lateral and medial knee region, moderate mid thigh. Distal thigh. Patient is exquisitely tender over the distal quadricep with palpable defect noted. There is minimal complaints of pain over proximal to mid anterior thigh, minimal to IT band, no pain over palpation of anterior, lateral hip or over the greater trochanter. Unable to perform straight leg raise Special tests: Negative varus and valgus stress Lower leg is soft, nontender, easily compressible, Homans negative Full range of distal joints with no symptom aggravation Distal motor or sensory intact with brisk cap refill at 2 seconds Left Knee Skin/Wound: No erythema and Yes swelling Homans Sign: No Knee ROM: Yes ROM-Extension -20 to 0 Stability: NML: Kelechi, NML: Posterior Drawer, NML: Valgus 0, NML: Valgus 30, NML: Varus 0 and NML: Varus 30 KNEE: Large joint effusion no open wound no sign of infection he does have a palpable defect to his quadriceps insertion patellar tendon is intact there is no collateral instability no gross motor or sensory deficits Supplemental Info Independent review of ED visit report from [facility] on date of visit. Per ED note, concern for possible quadricep injury and referred to orthopedics. X-ray imaging requested and pending per PACS transfer Coding Level of Care Code Off vis,new,level 4 Diagnoses Traumatic rupture of left quadriceps tendon, initial encounter S76.112A Laterality: left Encounter type: initial encounter Comment anticipate surgery < 24 hrs Assessment and Plan Assessment and Plan (1) Traumatic rupture of quadriceps tendon: Status: Acute Qualifiers: Laterality: left Encounter type: initial encounter Qualified Code(s): S76.112A - Strain of left quadriceps muscle, fascia and tendon, initial encounter Orders: Orders Lower Ext Joint Only (Routine) Today S76.112A - Strain of left quadriceps muscle, fascia and tendon, initial encounter 10/29/24 1251 <Electronically signed by Jolly FAMC> Date Jolly ST 10/29/24 1651<Electronically signed by Tre Rust DO> Cosigner Signature: Date (if applicable) Tre Rust DO CC: ~ I have examined the patient the following changes are noted: Respivent and alternatives of surgery were reviewed extensively with the patient including risk of bleeding , blood clot, infection nerve artery tissue damage need for further surgery continued pain postoperative stiffness postoperative restrictions and expected postoperative recovery. He did have an MRI completed which demonstrated full-thickness quadriceps tendon rupture. We discussed repair and how this is performed.
--- NOTE | 2024-10-30 10:04 | OP.PCM_ITS ---
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 carpet installer: Yes Straight Cutter: Donnie Khan Tasks completed by merchandising assistant: Opening & closing Type of Anesthesia: General RN Documented Start/Stop Times: Operation Date: 10/30/24 08:30 Case Time Into Pre-Op 10/30/24 07:12 Anesthesia Start 10/30/24 08:21 Into Room 10/30/24 08:21 Procedure Start 10/30/24 08:44 Procedure End 10/30/24 09:54 Anesthesia End 10/30/24 10:02 Out of Room 10/30/24 10:02 Procedure Start Time: 08:44 Procedure Stop Time: 09:54 Select all DRAINS/GRAFTS/IMPLANTS that apply: Implanted device Implanted device details: Arthrex 4.75 bio composite swivel locks x 2 Estimated Blood Loss: 25 Specimen collected: No Description of surgery: Insert quad tendon repair Surgical Findings: Preoperative diagnosis: Left knee quadriceps tendon rupture Postoperative diagnosis: Same Procedure: Left quadriceps tendon repair Anesthesia: General With femoral block EBL: 25 Complications: None Condition: Stable to PACU Implants: Arthrex 4.75 bio composite swivel lock x 2 Indication for procedure: 59-year-old male patient was stepping down and thought there was a step but missed a step landing hard on the ground immediately had pain and pop in his left knee inability ambulate . He did have an MRI performed which demonstrated full-thickness quadriceps tendon rupture risk benefits and alternatives were reviewed including risk of bleeding infection nerve, artery, bone, tissue damage, blood clot need for further surgery and continued pain expected postoperative course stiffness. Procedure: The patient was met in the preoperative holding area and the operative extremity was identified by both patient and physician was marked. Patient is met by anesthesia and a femoral block was placed preoperatively. Patient was brought back to the operating a wheeled cart transferred the operative table supine position anesthesia was started. Well-padded tourniquet was placed on the operative extremity. Patient was prepped and draped in usual sterile fashion and timeout was called to the proper patient procedure extremity was being contemplated. A bump was placed under the knee and a 10 blade scalpel was used to make a midline incision starting at the mid pole of the patella extending proximally a few inches this was carried down through the skin and subcutaneous tissue full-thickness flaps were elevated medial and lateral immediately there was noted to be a full-thickness quadriceps tendon rupture hematoma was removed irrigation of the joint was performed there is 1 strand of quad tendon that was still attached, it was removed off the superior pole the patella and was incorporated into the tendon repair. #2 fiber tape was used to perform a [place] stitch up and down the quadriceps tendon this was performed twice leaving for free and at the tendon end. There was tearing of the VMO and vastus lateralis muscle the superior pole of the patella was prepped and anchor sites were prepared we then drilled and tapped placed the fiber tapes through the anchors and inserted the anchors with excellent purchase we then used the free ends to incorporate the repair of the medial and lateral gutters and musculature and #1 Vicryl was used for the more lateral and medial repairs [id number] stitches wound was thoroughly irrigated and 2-0 Vicryl was used in the subcutaneous tissue followed by edgard in the skin Amplex Ag dressing was applied followed by a thigh-high ALEX hose followed by a T ROM knee brace locked in extension. Patient tolerated procedure well all counts were correct was brought back to the PACU in stable condition. Complications Complications: No
--- NOTE | 2024-10-30 10:12 | DCINST_ITS ---
Discharge Instructions Dressing / Incision Call your doctor if you observe: Shortness of breath and Chest pain Additional Dressing/Incision Instructions:: Ice and elevate lower extremities 2 weeks while not ambulating. Ambulation is encouraged with the knee locked in full extension with the brace on. Do not attempt ambulation or transfer without brace on . Use assistive devise for stability. No showering 5 days after surgery. May begin showering postop day #5. Remove the dressing prior to s hower and gently wash with warm water and antibacterial soap then pat dry and place abdominal pad (or plain gauze) and ALEX hose over top. If you decide not to begin showering 5 days post operatively and wish to sponge bath only, then you may leave dressing undisturbed for up to 1 week, but must remove prior to first shower. Do not submerge for 3 weeks. If not showering daily after the initial dressing is removed you must clean incision and change dressing daily after the dressing comes off, must come off by 7 days postop. Do not allow animals near the incision area. Keep clean. Follow anti-coagulation recommendations as prescribed. Do not take any NSAIDs while on blood thinner. Do not take any additional narcotic pain medication other than what was prescribed on your surgery day without discussing with physician. Narcotic medication can be addictive. Do not drink alcohol while taking narcotics. Supplement narcotic prescription with acetaminophen 1000 mg 4 times a day. Call me /Dr. Rust's office ) with any concerns. Follow Up Care Please Follow Up With: Tre Rust DO When: 1 week Test Results: Test results from this visit will be discussed in further detail at your follow- up appointment, if applicable. Discharge Plan Admission Primary Reason for Your Visit: Left Quad tendon repair Attending Provider: Tre Rust Primary Care Provider: Care Physician,No Primary Instructions Print Language: Danish Discharge Orders/Prescriptions Prescriptions: New acetaminophen 500 mg tablet 1,000 mg PO Q6H Qty: 100 2RF cephalexin 500 mg capsule 1,000 mg PO Q8H Qty: 4 0RF Rx Instructions: Take 2 tabs before you go to bed and 2 tabs after 5 AM morning after surgery when you wake up Eliquis 2.5 mg tablet 2.5 mg PO BID Qty: 30 0RF Rx Instructions: Begin morning after surgery. oxycodone 5 mg tablet 5 - 10 mg PO Q6H PRN (Reason: pain) 7 Days Qty: 60 0RF tizanidine 2 mg tablet 2 mg PO TID PRN (Reason: muscle spasticity) Qty: 30 0RF Held Xywav 0.5 gram/mL solution 3.75 g PO HS Hold Instructions: do not take while on oxycodone and tizanidine as can increase respiratory depression. No Action omeprazole 40 mg capsule,delayed release(DR/EC) 40 mg PO QAM amlodipine 5 mg tablet 5 mg PO QDAY montelukast 10 mg tablet 10 mg PO QDAY magnesium citrate 100 mg tablet 500 mg PO QDAY Referrals / Follow Up: Care Physician,No Primary [Primary Care Provider] - Disposition Disposition (needs filled in before D/C Order can be placed): Home, Self Care
--- NOTE | 2024-10-30 10:40 | PCM.POSTANE2 ---
Anesthesia Postop Eval I Sum Anesthesia Postop Eval I Summary Anesthesia Postop Eval I Summary: Anesthesia Postop Eval I: Assessment Summary Airway patent Spontaneous unlabored respirations Mental status nausea Vomiting Anesthesia Postop Eval I: Fluid Summary Crystalloid volume administer (ml) Colloids volume administered ( ml) Blood Product volume administered (ml) Total IV fluid infused Anesthesia Postop Eval I: Summary Notes Anesthesia Complication Anesthesia Complication Comment: Post-operative progress note Anesthesia: Postop Eval II Evaluation Mental status: Awake and Calm Pain Level: 0 nausea: No Vomiting: No Progress Note Post-operative progress note: comfortable with Left Femoral PNB Complications Anesthesia Complication: No
[2024-10-30] MEDS: Cefazolin 2 GM in 0.9% Normal Saline (100mL Bag) 100 ML IV (11:39)
--- NOTE | 2024-10-30 11:46 | PCM.POST.ANE ---
Anesthesia: Postop Eval I Current Vital Signs Temperature: 97.9 F Pulse Rate: 61 Blood Pressure: 121/66 Respiratory Rate: 16 Pulse Ox: 97 Assessment Airway patent: Yes Spontaneous unlabored respirations: Yes nausea: No Vomiting: No Anesthesia Complication: No Fluid Hydration Crystalloid volume administer (ml): 1,100 Total IV fluid infused: 1,100 Progress Note Anesthesia document: Postop Eval 1 completed: Yes
== END 2024-10-30 12:21 | disposition home or self-care (01) ==
LOC: SDC 07:05 → AC 07:06
PROVIDERS: Referring Provider Orthopaedic Surgery; Visit Provider Orthopaedic Surgery
PROC: (CPT 27385; principal; 2024-10-30 08:10)
DX: S76.112A Strain of left quadriceps muscle, fascia and tendon, initial encounter (principal); W10.9XXA Fall (on) (from) unspecified stairs and steps, initial encounter; I10 Essential (primary) hypertension; Z79.899 Other long term (current) drug therapy
CPT/HCPCS: 27385; 01320; 64447; C1713; J2405